=== PATIENT | male | born 1990 | race African-American/Black ===

== ENCOUNTER 2024-10-24 08:59 | Outpatient (AMB) | payer OTHER, SELFPAY ==
--- NOTE | 2024-10-24 09:03 | MHC.PC.OV ---
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 Prior PCP? - Unknown practice in [place], [place] Last office visit/CPE/labs - About 1.5 years ago Acute issue(s) - Poor sleep. Wakes up every 3 hours. Sleeps and average of 5-6 hours - Anxiousness: loss of focus, nervous, difficulty, and difficultly with communication about 4-5 times a week since he was deployed in [facility] in 08/2022. 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 Denies lack of pleasure or interest in doing things he enjoys. No hopelessness or helplessness. No SI/HI Past Medical History - Anxiety, Depression (not officially diagnosed); never been on medication; no h/o psychotherapy - Fainted and fall on the bathroom fall while walking to the bathroom 2-3 months ago. He was unconscious. His girlfriend found him on the floor. He was able to get up after 1-2 minutes. EMS was not contacted. He has not had another fainting episode Surgical History - None Family History - Dad: Asthma - Mom: Alcohol abuse, hypertension, hypercholesterolemia, substance abuse, mental illness Social History - Nonsmoker. History of vaiping; quit 6 months ago. Drinks 1-2 beers or wine twice weekly. Denies recreational drug use - Has been making healthy dietary choices. Exercises routinely (run and lift weights). 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 Gets annual eye exam and physical at the [facility] - Last dental visit was over a year ago; encouraged to schedule an appointment with his dentist for routine dental care. - Last tetanus vaccine was in 2021 - Up-to-date on the influenza vaccination [facility] Medical History (Updated 10/24/24 @ 09:56 by Shu Lora CNP) Depression Anxiety Family History (Updated 10/24/24 @ 09:17 by Alessia Byrd) Mother Alcohol abuse Substance abuse Mental illness in member of household High blood pressure High cholesterol Father Asthma Social History Housing: Apartment Patient Tobacco Use Status: Never used Tobacco e-Cigarette/Vaping Use: Former Use (he quit 6 months ago) Second Hand Smoke Exposure: No service: Yes Current occupational status: unemployed Current occupation: [employer] Current occupational exposures/hazards: No Cognitive needs: No Hearing needs: No Vision needs: No Questionnaire PHQ-9 Over the last 2 weeks, how often have you been bothered by any of the following problems? 1. Little interest or pleasure in doing things: several days 2. Feeling down, depressed, or hopeless: several days 3. Trouble falling or staying asleep, or sleeping too much: more than half the days 4. Feeling tired or having little energy: more than half the days 5. Poor appetite or overeating: several days 6. Feeling bad about yourself - or that you are a failure or have let yourself or your family down: not at all 7. Trouble concentrating on things, such as reading the newspaper or watching television: nearly every day 8. Moving or speaking so slowly that other people could have noticed. Or the opposite - being so fidgety or restless that you have been moving around a lot more than usual: not at all 9. Thoughts that you would be better off or of hurting yourself in some way: not at all Total score: 10 Depression Screening Interpretation: Positive Depression Screening Done: Yes 18315 - PHQ-9 Billing: Yes Source: Developed by Drs. Malcom Benton, Aurora Wilson, Loc Whitfield and colleagues, with an educational alfredo from [employer]. Thrive Questionnaire Date Thrive assessed: 10/24/24 I am a: Patient What is your living situation today?: I have a steady place to live Within the past 12 months, did the food you bought not last and you didn't have the money to get more?: Never true Within the past 12 months, did you worry whether your food would run out before you got money to buy more?: Never true Do you have trouble paying for medicines?: No Do you have trouble getting transportation to medical appointments?: No Do you have trouble paying your heating and electricity bill?: No Do you have trouble taking care of your child, family member or friend?: No Do you have trouble with day-to-day activities such as bathing, preparing meals, shopping, managing finances, etc.?: Yes Are you currently unemployed and looking for a job?: No Are you interested in more education?: No Please select the resources that you would like help with: None Currently or been in a relationship where the following occur: No concerns reported THRIVE Score: 0 AUDIT C Alcohol Use Questionnaire (AUDIT-C) 1. How often do you have a drink containing alcohol?: 2-3 times a week 2. How many drinks containing alcohol do you have on a typical day when you are drinking?: 1 or 2 3. How often do you have six or more drinks on one occasion?: Never Total Score: 3 Score Reviewed/Action Taken: Yes MARQUIS-7 AMB Questionnaire MARQUIS-7 Date MARQUIS - 7 assessed: 11/07/24 Feeling nervous, anxious, or on edge: 2 = More than half the days Not being able to stop or control worryin = Several days Worrying too much about different things: 2 = More than half the days Trouble relaxin = More than half the days Being so restless that it is hard to sit still: 2 = More than half the days Becoming easily annoyed or irritable: 2 = More than half the days Feeling afraid as if something awful might happen: 0 = Not at all Total MARQUIS-7 score (0-4 normal; 5-9 mild; 10-14 moderate; 15-21 severe): 11 Source: Developed by Drs. Malcom Benton, Aurora Wilson, Loc Whitfield and colleagues, with an educational alfredo from [employer]. MARQUIS-7 Assessment Billing MARQUIS-7 Assessment Tool: MARQUIS-7 Assessment 91017 Review of Systems Const Details: Denies chills, Denies fatigue, Denies fever(s), Denies headache(s) and Denies weakness HEENT Denies change in vision, Denies dizziness, Denies headache(s), Denies hearing loss, Denies nasal congestion, Denies sinus pain, Denies sinus pressure and Denies sore throat Card Denies chest pain, Denies lightheadedness, Denies dyspnea and Denies other (palpitations) Resp Denies cough, Denies dyspnea and Denies wheezing GI Denies abdominal pain, Denies melena, Denies hematochezia, Denies change in bowel habits, Denies dyspepsia and Denies nausea Denies hematuria and Denies dysuria Musc Denies abnormal gait, Denies myalgias, Denies arthralgias, Denies numbness and Denies tingling Skin/Breast Denies rash, Denies unusual bruising and Denies wounds Neuro Denies abnormal gait, Denies dizziness, Denies headache(s), Denies memory loss, Denies numbness, Denies Sensory deficit (Neuro), Denies tingling and Denies weakness Psych Denies anxiety, Denies depression and Denies memory loss Endo Denies cold intolerance, Denies fatigue, Denies heat intolerance, Denies polydipsia and Denies polyuria Ortega/Lymph Denies easy bleeding and Denies easy bruising Aller/Immun Denies wheezing Physical exam (Primary Care) Vital Signs: Last Vital Signs Temp 98.2 F 10/24/24 09:10 Pulse 75 10/24/24 09:10 Resp 16 10/24/24 09:10 BP 126/76 10/24/24 09:10 Pulse Ox 97 10/24/24 09:10 Oxygen Delivery Method Room Air 10/24/24 09:10 BMI result Body Mass Index 35.2 Tobacco/Smoking Status: Tobacco use Status Tobacco use date assessed 10/24/24 10/24/24 09:08 Patient Tobacco Use Status Never used Tobacco 10/24/24 09:08 e-Cigarette/Vaping Use Former Use (he quit 6 months 10/24/24 09:08 ago) PHQ-9: PHQ-9 Score PHQ-9: Total score 10 12/18/24 09:21 Depression Screening Interpretation: Positive Thrive Assessment: Date of Thrive Assessment Date Thrive assessed 10/24/24 10/24/24 09:21 Currently or been in a relationship where the following occur: No concerns reported Const Other: General: no acute distress, well developed, alert and awake Nutritional Appearance: well nourished Orientation/consciousness: patient oriented x3 [facility] Head: Yes normocephalic and Yes atraumatic Ears: hearing grossly normal bilaterally and TM's normal bilaterally General nose exam: Normal external nose present and Normal nares present Mouth: Normal oral and palatal mucosa present and moist mucous membranes Teeth and gingiva: dentition normal Throat: Yes oropharynx normal Eyes Pupils: Equal, round and reactive pupils present and Pupil accommodation reflex normal EOM: EOMs intact bilaterally Neck Neck: Yes normal visual inspection, Yes no lymphadenopathy and Yes trachea midline Thyroid: Thyroid normal Carotids: no bruits Lymphatic: no lymphadenopathy noted Chest Chest palpation & inspection: normal inspection of the chest Resp Effort & Inspection: normal respiratory effort Auscultation: clear to auscultation bilaterally Cardio Rate: regular rate Rhythm: regular rhythm Heart sounds: S1 normal heart sound present, S2 normal heart sound present, no gallops, no murmurs and no rubs Bruits: no abdominal aortic bruits and no carotid bruits GI Palpation (GI): No Abdominal aortic bruit present, Soft to palpation, nontender, No hepatosplenomegaly present and No Rebound tenderness present Auscultation: normal bowel sounds General: Yes no CVA tenderness Back/Spine/Pelvis Back: no CVA tenderness Cervical Spine: cervical ROM normal and No Cervical spine tenderness Thoracic/Lumbar Spine: thoraco-lumbar ROM normal, No pain with thoraco-lumbar ROM, No thoracic spinal tenderness and No lumbar spinal tenderness Skin General: warm and dry. Normal skin color. Normal skin turgor Lesions: no lesions Rashes: no rashes Trauma: no lacerations or abrasions Wounds: no wounds Nails: normal Neuro General: patient oriented x3, gait normal and CN's II-XI intact bilaterally Cranial nerves: Yes Equal, round and reactive pupils present Cognition (Neuro): normal cognition Gait exam (Neuro): Normal gait present Motor exam (neuro): 5/5 motor strength present throughout Sensory Exam: No Sensory deficit (Neuro) Deep tendon reflexes (DTR's): Right patellar reflex intensity grade: 2+ and Left patellar reflex intensity grade: 2+ Extrem General: Yes normal to inspection, No edema and No calf tenderness Psych Appearance: grossly normal Affect: normal affect Attitude: cooperative Thought process: Normal thought process present Coding Level of Care Code New Pt Level 4 (87658) New Pt Prev Care 18-39yr(74808 Diagnoses Normal physical examination, routine Z00.00 Anxiety F41.9 Sleep disturbance G47.9 Snoring R06.83 Obesity (BMI 30-39.9) E66.9 Laboratory tests ordered as part of a complete physical exam (CPE) Z00.00 Additional Codes MARQUIS-7 Assessment Billing - MARQUIS-7 Assessment Tool: MARQUIS-7 Assessment 31939 ([id number]) PHQ-9 - 57334 - PHQ-9 Billing: Yes ([id number]) Assessment & Plan Assessment & Plan (1) Normal physical examination, routine: Code(s): Z00.00 - Encounter for general adult medical examination without abnormal findings Category: Medical Plan: No significant physical restrictions or limitations noted. Advised to get lab work done a few days before his next visit. Follow-up in 2-3 weeks for telehealth visit for labs review or sooner with symptoms or concerns. Verbalized understanding and agreed with the plan. (2) Anxiety: Code(s): F41.9 - Anxiety disorder, unspecified Category: Medical Plan: Exhibiting anxiety symptoms 4-5 times weekly for the past 2 years. His symptoms may be attributed to work-related stressors. No history of psychotropic medications or psychotherapy. Will trial hydroxyzine 25 mg twice daily as needed for anxiety. He is interested in psychotherapy; message sent to the community health navigator to refer the patient to a therapist. Routine exercise encouraged. Follow-up in 2-3 weeks for anxiety and labs review or sooner with symptoms or concerns. Verbalized understanding and agreed with the plan. (3) Sleep disturbance: Code(s): G47.9 - Sleep disorder, unspecified Category: Medical Plan: Hydroxyzine at night may improve sleep. Routine exercise encouraged. Instructed on sleep hygiene. Referred to sleep medicine for sleep studies. Follow-up with worsening or new symptoms. Verbalized understanding and agreed with the plan. (4) Snoring: Code(s): R06.83 - Snoring Category: Medical Plan: Plan as above. (5) Obesity (BMI 30-39.9): Code(s): E66.9 - Obesity, unspecified Category: Medical Plan: He currently weighs 274 lb, BMI is 35.2. Declines referral to a dietitian and notes that he will continue to make healthy lifestyle choices. Healthy diet and routine exercise encouraged. Follow-up as needed. Verbalized understanding and agreed with the plan. (6) Laboratory tests ordered as part of a complete physical exam (CPE): Code(s): Z00.00 - Encounter for general adult medical examination without abnormal findings Category: Medical Plan: Fasting labs ordered as part of a complete physical exam. Advised to fast for at least 10 hours before getting labs drawn. May drink water Verbalized understanding and agreed with treatment plan. Orders: Orders Lipid Panel Today Z00.00 - Encounter for general adult medical examination without abnormal findings UA CC w/rflx Micro + Cult Today Z00.00 - Encounter for general adult medical examination without abnormal findings Complete Blood Count Auto Diff Today Z00.00 - Encounter for general adult medical examination without abnormal findings Comprehensive [place]. Panel Fast Today Z00.00 - Encounter for general adult medical examination without abnormal findings TSH reflex Free T4 Today Z00.00 - Encounter for general adult medical examination without abnormal findings Referrals Sleep Medicine Referral G47.9 - Sleep disorder, unspecified, R06.83 - Snoring Medications: New hydroxyzine HCl 25 mg PO BID 30 days PRN 60 tabs 2RF anxiety
[2024-10-24 09:10] VITALS: BP 126/76; PULSE 75; RESP 16; TEMP 36.8; O2SAT 97; BMI 35.2
== END 2024-10-24 09:56 | disposition home or self-care (01) ==
LOC: HO.HMCFM 08:59
PROVIDERS: Visit Provider Nurse Practitioner Family
DX: Z00.00 Encounter for general adult medical examination without abnormal findings (principal); F41.9 Anxiety disorder, unspecified; E66.9 Obesity, unspecified; Z68.35 Body mass index [BMI] 35.0-35.9, adult; G47.9 Sleep disorder, unspecified; R06.83 Snoring

== ENCOUNTER → 2024-10-24 08:59 | Outpatient (BNVA) | payer OTHER, SELFPAY | PROVIDERS: Visit Provider Nurse Practitioner Family | DX: Z00.00 Encounter for general adult medical examination without abnormal findings (principal); R55 Syncope and collapse; F41.9 Anxiety disorder, unspecified; G47.9 Sleep disorder, unspecified; R06.83 Snoring; E66.9 Obesity, unspecified; Z68.35 Body mass index [BMI] 35.0-35.9, adult; Z71.3 Dietary counseling and surveillance | CPT/HCPCS: 96127; 99202 ==

== ENCOUNTER 2024-11-10 12:04 | Outpatient (REF) | payer OTHER, SELFPAY ==
--- OUTSIDE RECORDS SUMMARY | 2024-11-10 12:06 | XMS_ITS | Continuity of Care Document ---
Author Name [facility] Organization [facility] Care Team Providers Care Children'S Attendant Name Role Phone [facility] Unavailable Unavailable Problems Combined list of problems from Department of Defense and Veterans Affairs facilities. It does not include entries that were removed or entered in error. 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 It does not include entries that were removed or entered in error. Substance Category Reaction Severity Reaction type Status Date Reported Comments Source No Known Allergies Drug allergy (disorder) active 10/24/2015 [facility] [place] [address] Immunizations Combined list of available immunizations from the Department of Defense and Veterans Affairs facilities. Immunization Series Date Given Administered By Site Reaction Lot Number CVX Code Drug Kennel Operator Status Comments Source influenza, injectable, quadrivalent- pf 2021 [id number] ma complet ed influenza , injectabl e, quadrival ent-pf 08/30/22 Given Ambulat ory Pharmac y typhoid Vi capsular polysaccharid e vac 2021 [id number] 101 sanofi pasteur complet ed typhoid Vi capsular polysacch aride vac 07/18/22 Given Ambulat ory Pharmac y yellow fever vaccine 2021 [id number] 37 sanofi pasteur complet ed yellow fever vaccine 07/18/22 Given Ambulat ory Pharmac y meningococcal A,C,Y,W-135 (MCV4P) 2021 [id number] 114 sanofi pasteur complet ed meningoco ccal A,C,Y,W-1 35 (MCV4P) 07/18/22 Given Ambulat ory Pharmac y influenza, injectable, quadrivalent 2020 [id number] 158 [id number] ma complet ed influenza , injectabl e, quadrival ent 08/22/21 Given Ambulat ory Pharmac y influenza, injectable, quadrivalent, contains preservative 0 2020 [id number] 158 [facility] (SKB) complet ed influenza , injectabl e, quadrival ent, contains preservat alexey DoD COVID Vaccine Moderna 2020 [id number] complet ed COVID Vaccine Moderna 02/20/21 Given Ambulat ory Pharmac y SARS-COV-2 (COVID-19) vaccine, mRNA, spike protein, LNP, preservative free, 100 mcg or 50 mcg dose 2 2020 [id number] 207 Moderna US, Inc. (MOD) complet ed SARS-COV- 2 (COVID-19 ) vaccine, mRNA, spike protein, LNP, preservat alexey free, 100 mcg or 50 mcg dose DoD COVID Vaccine Moderna 2020 [id number] complet ed COVID Vaccine Moderna 01/23/21 Given Ambulat ory Pharmac y SARS-COV-2 (COVID-19) vaccine, mRNA, spike protein, LNP, preservative free, 100 mcg or 50 mcg dose 1 2020 [id number] 207 Moderna US, Inc. (MOD) complet ed SARS-COV- 2 (COVID-19 ) vaccine, mRNA, spike protein, LNP, preservat alexey free, 100 mcg or 50 mcg dose DoD influenza, injectable, quadrivalent, preservative free 2019 BARRY, () Not Given influenza , injectabl e, quadrival ent, preservat alexey free DoD influenza, injectable, quadrivalent- pf 2018 [id number] 150 Seqirus complet ed influenza , injectabl e, quadrival ent-pf 09/08/19 Given Ambulat ory Pharmac y Influenza, injectable, quadrivalent, preservative free 0 2018 [id number] 150 Seqirus (SEQ) complet ed Influenza , injectabl e, quadrival ent, preservat alexey free DoD anthrax vaccine 2018 [id number] 24 Emergent Biosolutions complet ed anthrax vaccine 12/01/18 Given Ambulat ory Pharmac y anthrax vaccine 3 2018 [id number] 24 Emergent [employer] Amy (MIP) complet ed anthrax vaccine DoD influenza, injectable, quadrivalent 2017 [id number] 158 GlaxoSmithKli ne complet ed influenza , injectabl e, quadrival ent 09/25/18 Given Ambulat ory Pharmac y influenza, injectable, quadrivalent, contains preservative 0 2017 [id number] 158 SmithKline (SKB) complet ed influenza , injectabl e, quadrival ent, contains preservat alexey DoD anthrax vaccine 2017 [id number] 24 Emergent [employer]olutions complet ed anthrax vaccine 06/21/18 Given Ambulat ory Pharmac y anthrax vaccine 2 2017 [id number] 24 [employer] [place] (MIP) complet ed anthrax vaccine DoD anthrax vaccine 2017 [id number] 24 Emergent [employer] complet ed anthrax vaccine 04/15/18 Given Ambulat ory Pharmac y typhoid Vi capsular polysaccharid e vac 2017 [id number] 101 sanofi pasteur complet ed typhoid Vi capsular polysacch aride vac 04/15/18 Given Ambulat ory Pharmac y anthrax vaccine 1 2017 [id number] 24 [employer] Amy (MIP) complet ed anthrax vaccine DoD typhoid Vi capsular polysaccharid e vaccine 1 2017 [id number] 101 Sanofi Pasteur (PMC) complet ed typhoid Vi capsular polysacch aride vaccine DoD Influenza, inj, MDCK, quadrivalent- pf 2016 [id number] 171 Seqirus complet ed Influenza , inj, MDCK, quadrival ent-pf 09/10/17 Given Ambulat ory Pharmac y Influenza, injectable, Madin Ruby Canine Kidney, preservative free, quadrivalent 3 [id number] 171 Seqirus (SEQ) comple t ed Influenza , injectabl e, Madin Ruby Canine Kidney, preservat alexey free, quadrival ent DoD hepatitis A adult vaccine 2015 [id number] 52 GlaxoSmithKli ne complet ed hepatitis A adult vaccine 10/09/16 Given Ambulat ory Pharmac y hepatitis A vaccine, adult dosage 2 2015 [id number] 52 [facility] ([facility]) complet ed hepatitis A vaccine, adult dosage DoD influenza, seasonal, injectable-pf 2015 [id number] 140 Seqirus complet ed influenza , seasonal, injectabl e-pf 09/11/16 Given Ambulat ory Pharmac y Influenza, seasonal, injectable, preservative free 2 2015 [id number] 140 Seqirus (SEQ) comple t ed Influenza , seasonal, injectabl e, preservat alexey free DoD hepatitis A adult vaccine 2014 [id number] 52 GlaxoSmithKli ne complet ed hepatitis A adult vaccine 10/22/15 Given Ambulat ory Pharmac y hepatitis A vaccine, adult dosage 1 2014 [id number] [facility] complet ed hepatitis A vaccine, adult dosage DoD tetanus, diphtheria, acellular pertu is 2014 [id number] 115 GlaxoSmithKli ne complet ed tetanus, diphtheri a, acellular pertussis 10/17/15 Given Ambulat ory Pharmac y poliovirus vaccine, inactivated 2014 [id number] 10 sanofi pasteur complet ed polioviru s vaccine, inactivat ed 10/17/15 Given Ambulat ory Pharmac y meningococcal A,C,Y,W-135 (MCV4P) 2014 [id number] 114 sanofi pasteur complet ed meningoco ccal A,C,Y,W-1 35 (MCV4P) 10/17/15 Given Ambulat ory Pharmac y tuberculin purified protein derivative 2014 [id number] 96 sanofi pasteur complet ed tuberculi n purified protein derivativ e 10/17/15 Given Ambulat ory Pharmac y adenovirus vaccine, live 2014 [id number] 143 Teva Pharmaceutica ls complet ed adenoviru s vaccine, live 10/17/15 Given Ambulat ory Pharmac y influenza, seasonal, injectable-pf 2014 [id number] 140 CSL Behring complet ed influenza , seasonal, injectabl e-pf 10/17/15 Given Ambulat ory Pharmac y poliovirus vaccine, inactivated 1 2014 [id number] 10 Sanofi Pasteur ([facility]) complet ed polioviru s vaccine, inactivat ed DoD meningococcal polysaccharid e (groups A, C, Y and W-135) diphtheria toxoid conjugate vaccine (MCV4P) 1 2014 [id number] 114 Sanofi Pasteur ([facility]) complet ed meningoco ccal polysacch aride (groups A, C, Y and W-135) diphtheri a toxoid conjugate vaccine (MCV4P) DoD tetanus toxoid, reduced diphtheria toxoid, and acellular pertu is vaccine, adsorbed 1 2014 [id number] 115 hetras (SKB) complet ed tetanus toxoid, reduced diphtheri a toxoid, and acellular pertussis vaccine, adsorbed DoD Influenza, seasonal, injectable, preservative free 1 2014 [id number] 140 CSL Biotherapies, Inc. (CSL) complet ed Influenza , seasonal, injectabl e, preservat alexey free DoD Adenovirus, type 4 and type 7, live, oral 1 2014 [id number] 143 [facility] (BRR) complet ed Adenoviru s, type 4 and type 7, live, oral DoD measles virus vaccine 0 2014 05 () Not Given measles virus vaccine DoD rubella virus vaccine 0 2014 06 () Not Given rubella virus vaccine DoD mumps virus vaccine 0 2014 07 () Not Given mumps virus vaccine DoD varicella virus vaccine 0 2014 21 () Not Given varicella virus vaccine DoD hepatitis B vaccine, unspecified formulation 0 2014 45 () Not Given hepatitis B vaccine, unspecifi ed formulati on DoD Results Combined list of recent chemistry, hematology and other laboratory results from Department of Defense and Veterans Affairs, ranging from 15 months to all on record, depending upon the facility. Order Name Results Value Reference Range Date Interpretation Specimen Comments Source Infectio us Disease HIV-1/O/2. EPI NON-REAC TIVE 02/23 Result Comment: INTERPRETAT ION(S): This method is a screening procedure for the detection of HIV p24 Antigen and Antibodies to HIV-1, including Group O, and/or HIV-2. NON-REACTIV E: HIV-1 antigen and HIV-1 / HIV-2 antibodies were not detected. No laboratory evidence of HIV infection. A negative test result does not exclude the possibility of exposure to or infection with HIV. HIV antibodies and/or p24 antigen may be undetectabl e in some stages of the infection and in some clinical conditions. If acute HIV infection is suspected, consider submitting another specimen to a reference laboratory for HIV-1 RNA. SCREEN REACTIVE - CONFIRMATIO N TO FOLLOW: Possible presence of HIV-1 antibodies, HIV-2 antibodies and/or HIV-1 p24 antigen. Specimen will reflex to the confirmatio n testing that fulfills the Center for Disease Control and Prevention' s HIV diagnostic algorithm. Refer to [facility] Lab Guide for additional information : [email or web address]/ [email or web address] [email or web address] x Testing performed by [employer] jerel kidd. Performed by: Epidemiolog y Laboratory Service [facility] [address] [place] [phone] Amb[facility] y Pharmacy [employer] luzma Sendouts Repository Sample.EPI RECEIVED 02/23 Result Comment: INTERPRETAT ION(S): Performed by: Epidemiolog y Laboratory Service [facility] [facility] [address] [place] [phone] Amb[facility] y Pharmacy Vital Signs Combined list of inpatient and outpatient Vital Signs from Department of Defense and Veterans Affairs, ranging from 12 months to all on record, depending upon the facility. Vital Sign Value Date Comments Source No data available for this section Ambulatory Pharmacy Encounters Combined list of: 1) Encounters from Department of Veterans Affairs facilities going back up to thelast 18 months. 2) Encounters from the Department of Defense facilities going back up to 280 months. Location Location Details Encounter Type Encounter Number Reason For Visit Attending Provider ADM Date DC Date Status Disposition Source [facility] [place] [place] [address](Hea ring Conservat ion, BMT) OUTPATIENT [id number] JAQUELIN PRINCE 10/21 Released w/o Limitations [facility] [place] [address](H earing Conserv ation, BMT) [facility] [place] [address]([facility]) OUTPATIENT [id number] Notes Entered by: Venkata VALERIO 23 Oct 2015 0954 ------- ------- ------- ------- -- strep prophyl axis SCHAFFERMIAH PICKERING Venkata 10/23 Released w/o Limitations [facility] [place] [address]([facility] teofilo) [facility] [place] [address](MEI Rzaa) OUTPATIENT [id number] Notes Entered by: CHIDI BENNETT 04 Nov 2015 1518 ------- ------- ------- ------- -- cold pack FANG BENNETT 11/04 Released w/o Limitations [facility] [place] [address](Christine Raza) [facility], [place] [address]([facility], [facility]) OUTPATIENT [id number] [facility] NUTRITI ON MARCIA FABIAN Christine 12/17 Released w/o Limitations [facility] [place] [address](Pablo mckeon Medicin e, [facility]) [facility], [place] [address]([facility]) OUTPATIENT [id number] request IRINA Cardoso 12/18 Released with Work/Duty Limitations [place] [address]([facility] teofilo) Theater Facility OUTPATIENT [id number] Theater Provider 08/28 Released with Work/Duty Limitations [facility] OUTPATIENT [id number] Theater Provider 12/01 Released w/o Limitations [facility] OUTPATIENT [id number] 7 Theater Provider 12/06 Released w/o Limitations [facility] OUTPATIENT [id number] Theater Provider 12/30 Released w/o Limitations [facility] OUTPATIENT [id number] 2 Theater Provider 01/18 Released w/o Limitations [facility] OUTPATIENT [id number] 1 Theater Provider 02/26 Released w/o Limitations [facility] OUTPATIENT [id number] Theater Provider 02/26 Released w/o Limitations [facility] OUTPATIENT [id number] 7 Theater Provider 02/26 Released w/o Limitations [facility] OUTPATIENT [id number] Theater Provider 02/28 Released w/o Limitations [facility] OUTPATIENT [id number] Theater Provider 03/01 Released w/o Limitations Theater Facilit y [facility] Medicine [facility]) TELE CONSULT [id number] Notes Entered by: ANGELIA CUEVAS 04 Aug 2022 141 ------- ------- ------- ------- -- 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 BUZZ Mathis 08/04 [facility]( light Medicin e [facility]) [facility] TELE CONSULT [id number] Notes Entered by: AVI ALMONTE 12 Aug 2022 1604 ------- ------- ------- ------- -- COVID-1 9 FILIBERTO Martinez 08/12 [facility]) Theater Facility OUTPATIENT [id number] Theater Provider 10/01 Released w/o Limitations [facility] OUTPATIENT [id number] 7 Theater Provider 02/08 Released w/o Limitations Theater Facilit [facility] [id number]-439 [facility] Outpatient [id number] CARLIN ARRIAGA 12/08 Discharge Disposition: Home or Self Care 8344R-4 39 [facility] 8344R-439 [facility] Dental [id number] FRITZ HARRELL 01/12 Discharge Disposition: Home or Self Care 8344R-4 39 AMDS 8344R-439 AMDS Between Visit [id number] 09/24 Discharge Disposition: Home or Self Care 8344R-4 39 AMDS Procedures Combined list of: 1) Procedures from Department of Veterans Affairs facilities going back up to thelast 18 months, not all VA non-surgical procedures are included; 2) All procedures from the Department of Defense facilities. Procedure Procedure Type Code Date Perfomer Comments Sour e No data available for this section Ambulatory Pharmacy Psychiatric Diagnostic Evaluation Review of Records and Reports Psychiatric Diagnostic Evaluation Review of Records and Reports [id number] GAMA MORAN [facility] Psychometric Neuropsych Testing Battery Admin By Computer Psychometric Neuropsych Testing Battery Admin By Computer [id number] GAMA MORAN [facility] Medical Nutrition Therapy Group (2 or More Individuals) Each 30 Minutes Medical Nutrition Therapy Group (2 or More Individuals) Each 30 Minutes [id number] MARCIA SMYTH [facility] Physician Supervised Injection Intramuscular Antibiotic Physician Supervised Injection Intramuscular Antibiotic [id number] BARBIE MAGANA [facility] Threshold Audiogram (Pure Tone) Automated Threshold Audiogram (Pure Tone) Automated 0208T JAQUELIN PRINCE [facility] MEDICAL NUTRITION THERAPY; GROUP (2 OR MORE INDIVIDUAL(S)), EACH 30 MINUTES 016 [facility] THERAPEUTIC, PROPHYLACTIC, OR DIAGNOSTIC INJECTION (SPECIFY SUBSTANCE OR DRUG); SUBCUTANEOUS OR INTRAMUSCULAR [facility] PURE TONE AUDIOMETRY (THRESHOLD), AUTOMATED; AIR ONLY [facility] NEUROPSYCHOLOGICAL TESTING (EG, [place] CARD SORTING TEST), ADMINISTERED BY A COMPUTER, WITH QUALIFIED HEALTH CHEMICAL TANK WORKER INTERPRETATION AND REPORT [facility] Social History Combined list of available smoking, tobacco, and other social history from Department of Defense and Veterans Affairs facilities. Social History Type Response Date Comment Sour e Male 09/27/2022 Ambulatory Pha rmacy Sexual Orientation Ambula tory Pharmacy Gender identity Ambulator y Pharmacy This section is an empty soc ial history section. DoD Assessment and Plan Combined list of future care activities from Department of Defense and Veterans Affairs facilities (e.g., assessment and plan notes, appointments, orders, and referrals). Additional future care activities may be listed in the Plan of Care section. Result Assessment and Plan Date Source Assessment and Plan Extracted from:Title : AUoF PHA / MHA Author: CATIA LEAHY Date: 12/09/23 Mbr came in for appt Addendum by SEBAS MCCORMACK on December 09, 2023 09:45 EST optometry: DVA 20/20 uncorrected NVA 20/20 uncorrected color vision: normal confrontational gregorio: normal BP: 135/80 HR: 73 Heght: 74'' weight: 260lbs No Meds No allergies No recent surgery/hospitalization Addendum by CARLIN SPENCER MD on December 09, 2023 09:54 EST Chief Complaint: Member here for annual PHA.?No acute complaints.?IMR?green. HEENT:?Normal Joints:?Normal Lungs:?Normal Heart:?Normal Comments: ANNUAL PERIODIC HEALTH ASSESSMENT I. BEDSPREAD SEAMER INFORMATION AND DEMOGRAPHICS (SMI) 1. Last Name: GISSELLE 2. First Name: MICHAEL 3. Middle Name: PERFECTO 4. Assessment Date: 5. : 6. Age: 33 7. Gender: M 8. DoD ID Number: [id number] 9. Service Branch: [employer] 10. 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 Unit Name: [id number] 14. Duty Station/Location: [place] 15. C: [id number] 16. Is this your first Periodic Health Assessment (PHA)?: N 17. Are you enrolled in a secure messaging system with your health care provider?: N 18. Current contact information: Preferred Method: Day Time Phone DSN: [id number] Day Time Phone: [phone] Night Time Phone: [phone] Email 1: [email or web address] Email 2: Address: [address] City: [place]: [place] Zip Code: [address] 19. Point of contact who can always reach you: Name: Ebonie Laird Phone 1: [phone] Phone 2: EMAIL: Address: [address] City: [place]: [place] Zip Code: [address] II. DEPLOYMENT INFORMATION (DEP) 1. [ 2 ] Total number of deployments in the PAST 5 YEARS 2. [ [place] ] Primary country of last deployment 3. [ ] Date departed theater 4. [ N ] Are you going to deploy within the NEXT 120 DAYS? III. OCCUPATIONAL INFORMATION (OCC) 1 [ [id number] ] What is your occupational code 2. [ Authorize Personal ] Describe your typical duty 3. [ No ] Does your specialty require an operational duty physical exam? 4. [ No ] Are you currently enrolled in a medical surveillance/occupational health program?: No IV. MEDICAL CONDITIONS (JAMES): 1. Since your last PHA, have you experienced any of the following health conditions, and if so, what is your status? [ ] Conditions with no medical care [ ] Conditions with medical care, but no longer under treatment [ ] Conditions with medical care, and NOW under treatment 2. Since your last PHA, have you experienced any of the following health conditions, and if so, what is your status? [ ] Conditions with no medical care [ ] Conditions with medical care, but no longer under treatment [ ] Conditions with medical care, and NOW under treatment 3. For any condition marked YES in question 1 or 2, are you currently on any profile or limited duty for that condition? [ ] Conditions 4. [ Yes ] Have you been based or stationed at a location where an open burn pit was used? 5. [ Not Sure ] Have you been exposed to toxic airborne chemicals or other airborne contaminants? 6. [ No ] Are you enrolled in the Airborne Hazards and Open Burn Pit Registry? 7. [ N ] Federal law requires eligible members to enroll in the Airborne Hazards and Open Burn Pit Registry or opt-out. If eligble, choose one: 8. Have you had any surgery since your last PHA?: No 10.a. [ No ] Since your last PHA, has a health care provider recommended surgery(s) that you have not had? 11.a. [ No ] Do you currently require hearing aids, special medical supplies, CPAP, adaptive equipment, assistive technology devices, and/or other special accommodations? 12.a. [ No ] Do you have a waiver or profile for any part of your Service's physical fitness test? 13.a. [ No ] Do you have any problems wearing a gas mask, ballistic helmet, body armor, and/or chemical/biological protective garments? 14.a. [ No ] Have you ever been told by a health care provider that you SHOULD NOT receive an immunization for medical reasons? 15.a. [ No ] Do you have a permanent profile or an Assignment Limitation Code C? 16.a. [ No ] Are you on a temporary profile or limited duty? 17. [ 0 ] During the PAST 2 years, how many times have you been placed on a temporary profile or on limited duty? V. INDIVIDUAL MEDICAL READINESS (IMR) 1. [ No ] Do you have any allergies? 3. [ Not required ] Do you have red medical warning dog tags? 4. [ No ] Do you wear corrective lenses? . BEHAVIORAL HEALTH (MHA) 1. a. [ None ] Over the PAST MONTH, what major life stressors have you experienced that are a cause of significant concern or make it difficult for you to do your work, take care of things at home, or get along with other people (for example, serious conflicts with others, relationship problems, or a legal, disciplinary or financial problem)? 2. a. [ No ] In the PAST YEAR did you receive care for any mental health condition or concern such as, but not limited to post traumatic stress disorder (PTSD), depression, anxiety disorder, alcohol abuse or substance abuse? 3. [ None ] What prescription or over-the counter medications (including herbals/supplements) for sleep, pain, combat stress, or a mental health problem are you CURRENTLY taking? 4. a. [ No ] In the past 12 months, have you gambled? 5. a. [ Never ] How often do you have a drink containing alcohol? 6. Have you ever had any experience that was so frightening, horrible, or upsetting that in the PAST MONTH, you: 6. a. [ No ] Have had nightmares about it or thought about it when you did not want to? 6. b. [ No ] Tried hard not to think about it or went out of your way to avoid situations that remind you of it? 6. c. [ No ] Were constantly on guard, watchful or easily startled? 6. d. [ No ] [place] numb or detached from others, activities, or your surroundings? 6. e. [ Not answered ] [place] guilt or unable to stop blaming yourself or others for the event(s) or any problems the event(s) may have caused? 7. Over the LAST 2 WEEKS, how often have you been bothered by the following problems? 7. a. [ Not at all ] Little interest or pleasure in doing things 7. b. [ Not at all ] Feeling down, depressed, or hopeless 8. [ No ] Would you like to schedule an appointment with a health care provider to discuss any health concern(s)? 9. [ No ] Are you interested in receiving information or assistance for a stress, emotional or alcohol concern? 10. [ No ] Are you interested in receiving assistance for a family or relationship concern? 11. [ No ] Would you like to schedule a visit with a balloon artist, mental health care provider, or a community support counselor? VII. FAMILY HISTORY AND LIFESTYLE (LIF) 1. [ Very Good ] Overall, how would you rate your health during the PAST MONTH? 2. [ None/Don't Know ] Member indicates that family members have the following problems 6. [ Yes ] I participate in moderate intensity physical activites at least 2.5 hours, or a combination of moderate and vigorous aerobic activites, for at least 75 minutes per week. 7. In a typical week, I do physical activities specifically designed to STRENGTHEN my muscles: [ 5 ] Day(s) per week 8. [ None ] What prescriptions or [id number] medications are you CURRENTLY taking for health problems on a ROUTINE BASIS? 9. Which of the following products have you taken since your last PHA: Protein Supplements/Creatine: Once a week Multi-Vitamins: Once a week [place]-3 Supplements: Once a week 11. Think about the PAST 30 DAYS. How often did you eat/drink the following foods/beverages? [ 3 to 6 servings per week ] Fruits [ 3 to 6 servings per week ] Vegetables [ Rarely or Never ] Starchy Vegetables [ 3 to 6 servings per week ] Whole Grains [ Rarely or Never ] Dairy and Calcium Containing Foods [ Rarely or Never ] Fish [ 3 to 6 servings per week ] Lean Protein [ Rarely or Never ] Sugar-Sweetened Beverages ] Have you had a cholesterol check by a health hospice home care coordinator within the PAST 5 YEARS? 13.a. In the PAST 30 DAYS, which of the following products have you used on at least one day? None 15. Which of the following best describes your past tobacco use? I have never used tobacco products. 16. [ No ] Are you regularly exposed to secondhand smoke? 17. [ 5 to less than 7 hours ] During the LAST 2 WEEKS, how many hours of sleep did you get on most days? 18. [ No ] During the LAST 2 WEEKS, have you felt impaired or unable to adequately perform due to sleepiness or poor quality sleep? 19. [ No ] Have you had any unexplained weight loss or gain since your last PHA? 20. Member is not at risk for sexually transmitted infections. 22. Since your last PHA, what, if anything, have you and your partner used to keep from getting ? [ Condoms ] I am actively taking steps to prevent , including 23. [ No ] In the last year, have you or your partner had a scare, where you were not trying to get but were worried enough to use a home test? X. OTHER MEDICAL (OTH) 1. [ 0 ] Rate the amount of pain you have had, on average, over the PAST 24 HOURS 3. [ No ] Since your last PHA, have you received care or treatment for any medical and/or mental health condition(s) from a civilian or non- facility? 5. Member acknowledged responsibility for reporting health issues. 7. [ No ] Woud you like to schedule an appointment with a health care provider to discuss any health concerns? XI. SEPARATION AND CHCF 1. 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 PART B. RECORD REVIEW AND RECOMMENDATIONS I. RECORD REVIEWER INFORMATION 1. Last Name: YESSI TRUONG 2. First Name: ALEXIA 3. Middle Name: 4. Service Branch: [employer] 5. 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 EMAIL: [email or web address] 8. Facility: [address] [facility] 9. Unit: [address] [facility] [address] 10. Address: [address] [place] [address] 11. State: [place] 12. Zip Code: [address] 13. Phone: [phone] 14. Date Record Review: II. MEDICAL SCREENING 1. 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 [ 6 feet 0 inches Date: ] glass forming crew member's most recently documented height 3. [ 250 pounds Date: ] glass forming crew member's most recently documented weight 4. [ 130/76 Date: ] glass forming crew member's most recently documented blood pressure reading 5. [ No ] Does the glass forming crew member have a history of abnormal blood pressure since their last PHA? 6. [ Yes ] Does the glass forming crew member have a laboratory test of sickle cell trait documented in their permanent medical record? 7. [ No Cholesterol Test Documented ] What is the date of the glass forming crew member's most recently documented cholesterol test? 9. [ No Active Medications Documented ] List of glass forming crew member's active medications listed in their permanent medical record 10. [ No ] Is there a discrepancy between the active medication record review and the glass forming crew member's self-reported list of medications? 11. [ No Outside Care Documented ] List documented significant care the glass forming crew member has received since their last PHA from a provider OUTSIDE the Health System 12. [ No ] Is there a discrepancy between the glass forming crew member's list of OUTSIDE care (from OTH[facility]), and the OUTSIDE care found in the record? 13. [ No Inside Care Documented ] List documented significant care the glass forming crew member has received since their last PHA from a provider INSIDE the Health System 15. [ Not Answered ] Confirm that vaccine exemptions are listed in the medical record for each vaccine listed IV. FAMILY HISTORY AND LIFESTYLE 1. [ Yes ] Does the [id number] reflect the glass forming crew member's reported family history? . DEPLOYMENT-RELATED HEALTH ASSESSMENTS 1. [ Yes ] Based on your check of records, does the glass forming crew member have any due or overdue deployment health assessments which need to be completed with this PHA? VII. INDIVIDUAL MEDICAL READINESS 1. [ No ] Does the glass forming crew member have an Assignment Limitation Code C? 3. [ Classification: 2 ] Most recently documented dental exam 4. [ No: Influenza, [place] ] Is the glass forming crew member current on all required immunizations in the immunization tracking system? 6. Does the glass forming crew member have the following laboratory tests documented in their permanent medical record? [ Yes ] HIV test within the PAST 24 months [ Yes ] G6PD results on file [ Yes ] Blood type and Rh on file [ Yes ] DNA test on file IX. ADDITIONAL RECORD REVIEWER COMMENTS 1. This record review does NOT have a need for provider notification or referral.2. Additional comments about this record review that need to be forwarded to the Health Long Term Care Administrator completing PART C: RR completed. JLV did not show any significant findings. Mbr deployed to [facility] from 09/21/22-02/15/23. No profiles. Date Record Review Completed: --------- PART C. HEALTH CARE PROVIDER I. MENTAL HEALTH ASSESSMENT (MHA) PROVIDER INFORMATION 1. Last Name: Rodrigo 2. First Name: Charmaine 3. Middle Name: 4. Service Branch: Other 5. 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 EMAIL: [email or web address] 8. Facility: [facility] Admin Office 9. Unit: N/A 10. [facility] 11. State: [place] 12. Zip Code: [address] 13. 14. Date HCP Review initiated: 1. Member marked that they did not have a concern or a difficulty with a major life stressor. 2. Address concerns identified on member questions 2 and 3. History of mental health care: Not answered Member's response: Provider's comments: Medications: Not answered Member's response: Provider's comments: 3. Member's AUDIT-C screening score was 0. (nothing required) 4. Member did not stefano yes on two or more of questions 6a through 6e. 5. Member did not stefano More than half the days or nearly every day on question 7a or 7b. 6. Suicide risk evaluation. 6. a. Ask: Over the past month, have you wished you were or wished you could go to sleep and not wake up?: No 6. b. Ask: Have you actually had any thoughts of killing yourself?: No 6. f. 1. Ask: In you lifetime, have you done anything, started to do anything, or prepared to do anything to end your life?: No 6. g. Further risk assessment comments: No concerns reported by the SM. SM denied SI/HI/self-harm. 7. Member states that they have not had thoughts or concerns over the past month that they might hurt or lose control with someone. 9. Summary of Provider's identified concerns needing referrals: None 11. Comments: 13. Supplemental services recommended/information provided: No supplemental services required Date MHA Certified: III. PERIODIC HEALTH ASSESSMENT (PHA) PROVIDER INFORMATION 1. Last Name: KAREN 2. First Name: CARLIN 3. Middle Name: 4. Service Branch: [employer] 5. 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 EMAIL: [email or web address] 8. Facility: [facility] 9. Unit: [address] [facility] 10. Address: [address] [place] [address] 11. State: [place] 12. Zip Code: [address] 13. Phone: [phone] 14. Date HCP Review initiated: IV. PERIODIC HEALTH ASSESSMENT PROVIDER RECOMMENDATIONS and REFERRALS 1. Provider concerns with this assessment: No issues or concerns identified V. SUMMARY AND COMMENTS 1. Additional information summarizing findings during the glass forming crew member assessment: 2. Provider Comments: . INDIVIDUAL MEDICAL READINESS DISPOSITION DETERMINATION JAMES: Ready DEN: Not Ready IMM: Ready LAB: Ready ME: Ready IMR Status: Partially Medically Ready VII. SERVICE MEDICAL DEPLOYABILITY EVALUATION INDICATED Based on your review of all documentation, is the glass forming crew member medically deployable without limitations? Reference [employer] 6490.07 Yes (glass forming crew member DOES NOT currently have a medical condition that limits deployability) Date PHA Completed: END OF [id number] REPORT Impression:Meets?medical standards per DAFMAN 48-123/MSD. Disposition:?No AF469 changes based on this encounter.[employer] Qualified. 11/10/2024 Ambulatory Pharmacy Functional Status Combined list of recent functional and cognitive assessments recorded at Department of Defense and Veterans Affairs (VA).VA Functional [place] Measurement (FIM) Scale: 1 = Total Assistance (Subject = 0% +), 2 = Maximal Assistance (Subject = 25% +), 3 = Moderate Assistance (Subject = 50% +), 4 = Minimal Assistance (Subject = 75% +), 5 = Supervision, 6 = Modified [place] (Device), 7 = Complete [place] (Timely, Safely). Assessment Date/Time Source Assessment Type Assessment Skill Assessment Score Assessment Details No data available for this section
[2024-11-10 14:00] LABS: MANUAL DIFF FLAG NO
[2024-11-10 14:08] LABS: Appearance Urine Clear; Basophils Absolute Auto 0.1 X10*3/uL (0.0-0.2); Basophils Percent Auto 0.7 % (0-2); Color Urine Yellow; Eosinophils Absolute Auto 0.3 X10*3/uL (0.0-0.4); Eosinophils Percent Auto 3.9 % (0-4); Glucose Urine UA Negative (Negative); Hematocrit 42.8 % (42.0-52.0); Hemoglobin 13.6 g/dl (14.0-18.0); Imm Gran Abs Auto 0.02 X10*3/uL (0.00-0.03); Imm Gran Pct Auto 0.3 % (0.0-0.4); Leukocyte Esterase Urine Negative (Negative); Lymphocytes Percent Auto 28.5 % (20-40); Mean Corpuscular HGB Conc 31.8 g/dl (31.0-36.0); Mean Corpuscular Volume 88.1 fL (80.0-98.0); Mean Platelet Volume 10.3 fL (9.4-12.4); Monocytes Absolute Auto 0.6 X10*3/uL (0.1-1.2); Monocytes Percent Auto 8.9 % (2-11); Neutrophils Percent Auto 57.7 % (45-73); Nitrite Urine Negative (Negative); Platelet Count 382 X10*3/uL (160-400); Red Blood Count 4.86 X10*6/uL (4.60-5.80); Red Cell Distribution Width 13.1 % (11.0-16.0); Specific Gravity - Urine >= 1.030 (1.005-1.025); Urine Blood Negative (Negative); Urine Ketones Negative (Negative); Urine Protein Negative (Neg-Trace); White Blood Count 6.9 X10*3/uL (4.8-10.8)
[2024-11-10 14:32] LABS: Alanine Aminotransferase 33 U/L (0-40); Albumin Level 4.2 g/dL (3.5-5.0); Alkaline Phosphatase 66 U/L (39-117); Anion Gap 11 (12-20); Aspartate Amino Transferase 48 U/L (5-37); Bilirubin Total 0.4 mg/dL (0.0-1.0); Blood Urea Nitrogen 11 mg/dL (9-16); Calcium 9.3 mg/dL (8.4-10.2); Carbon Dioxide 26 mmol/L (22-29); Chloride 109 mmol/L (96-108); Cholesterol 167 mg/dL (<200); Estimated Glomerular Filt Rate > 60; Glucose Fasting 82 mg/dL (60-99); HDL Cholesterol 40 mg/dL (>40); LDL Cholesterol Calculated 113 mg/dL (<100); Sodium 142 mmol/L (135-145); Total Protein 7.1 g/dL (6.5-8.0); Triglycerides 71 mg/dL (<150)
[2024-11-10 14:46] LABS: TSH reflex Free T4 1.05 uIU/mL (0.32-4.0)
== END 2024-11-10 12:05 | disposition home or self-care (01) ==
LOC: HO.HMGCLDS 12:04
PROVIDERS: PCP Nurse Practitioner Family; Visit Provider Nurse Practitioner Family
DX: Z00.00 Encounter for general adult medical examination without abnormal findings (principal)
CPT/HCPCS: 36415; 80053; 80061; 81003; 84443; 85025

== ENCOUNTER 2024-11-12 14:09 | Outpatient (AMB) | payer OTHER, SELFPAY ==
--- NOTE | 2024-11-12 14:07 | A.OFFPC_ITS ---
Intake Visit Reasons: Telehealth 2-3 wks labs review Intake Note: patient here for telehealth lab review Marketing Finance Manager Required: No Allergies No Known Allergies Allergy (Verified 11/12/24 14:07) Tobacco use date assessed: 10/24/24 Dental Screening Dental Screen Date: 11/12/24 Did you have a dental visit in the last 12 months?: No Did you have a dental problem in the last 6 months where you did not have access to dental care?: No Was dental information given to patient?: Patient has dentist HPI HPI Comments History of Present Illness Details 34-year-old male [facility] of recent lab results. He admits to taking hydroxyzine as prescribed the adverse reactions. Anxiety symptoms have significantly improved since starting hydroxyzine. The medication makes him drowsy, therefore, he takes it at bedtime. His sleep has improved; he sleeps an average of 6-8 hours nightly. He requests testosterone level check. No acute symptoms. 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 How many drinks containing alcohol do you have on a typical day when you are drinking?: 1 or 2 3. How often do you have six or more drinks on one occasion?: Never Total Score: 0 MARQUIS-7 AMB Questionnaire MARQUIS-7 Date MARQUIS - 7 assessed: 11/07/24 Source: Developed by Drs. Malcom Benton, Aurora Wilson, Loc Whitfield and colleagues, with an educational alfredo from [employer]. Review of Systems Const Details: Const Denies chills, Denies fatigue, Denies fever(s), Denies headache(s) and Denies weakness ENT Denies dizziness and Denies headache(s) Card Denies chest pain, Denies lightheadedness, Denies dyspnea and Denies other (Palpitations) Resp Denies cough, Denies dyspnea, Denies wheezing and Denies other ( shortness of breath) GI Denies abdominal pain, Denies melena, Denies hematochezia, Denies change in bowel habits, Denies dyspepsia and Denies nausea Denies hematuria and Denies dysuria Musc Denies abnormal gait, Denies myalgias, Denies arthralgias, Denies numbness and Denies tingling Skin/Breast Denies rash, Denies unusual bruising and Denies wounds Neuro Denies abnormal gait, Denies dizziness, Denies headache(s), Denies memory loss, Denies numbness, Denies Sensory deficit (Neuro), Denies tingling and Denies weakness Psych Denies anxiety, Denies depression, Denies memory loss Endo Denies cold intolerance, Denies fatigue, Denies heat intolerance, Denies polydipsia and Denies polyuria Aller/Immun Denies wheezing Physical exam (Primary Care) Tobacco/Smoking Status: Tobacco use Status Tobacco use date assessed 10/24/24 11/12/24 14:08 Patient Tobacco Use Status Never used Tobacco 11/12/24 14:08 e-Cigarette/Vaping Use Former Use (he quit 6 months 11/12/24 14:08 ago) Thrive Assessment: Date of Thrive Assessment Date Thrive assessed 10/24/24 11/12/24 14:08 Const Other: Telehealth visit. No physical exam. Telehealth Telehealth Telehealth Platform: Telephone Location of provider rendering services: practice address Location of patient: address on file Patient Identification confirmed using: Name, : Yes Telehealth method: voice only Patient verbally consented to treatment: Yes Patient verbally consented to billing insurance company: Yes Patient informed of any privacy concerns related to visit: Yes Coding Level of Care Code Tele Est Pt Level 3 (49270) Diagnoses Dyslipidemia E78.5 Elevated AST (SGOT) R74.01 Anxiety F41.9 Time Spent (min) 10 Assessment & Plan Assessment & Plan (1) Dyslipidemia: Code(s): E78.5 - Hyperlipidemia, unspecified Category: Medical Plan: Recent LDL level is slightly elevated, 113, HDL level is slightly low, 34. Advised to limit foods high in saturated fat and avoid foods high in trans fat. Routine exercise encouraged. Will check lipid panel periodically or if symptomatic. Verbalized understanding and agreed with treatment plan. (2) Elevated AST (SGOT): Code(s): R74.01 - Elevation of levels of liver transaminase levels Category: Medical Plan: Recent AST level is slightly elevated, 48. Hepatic steatosis is likely. Routine exercise and healthy diet, including low fatty foods encouraged. Will repeat liver panel lab and make changes as needed. Fast for 10-12 hours, may drink water, and perform blood work 2-3 days before next visit. Verbalized understanding and agreed with the plan. (3) Anxiety: Code(s): F41.9 - Anxiety disorder, unspecified Category: Medical Plan: Significantly improve on hydroxyzine. Sleep has also improved. Continue current treatment regimen. Routine exercise encouraged. Follow-up in 2 months or sooner with symptoms or concerns. Verbalized understanding and agreed with the plan. Orders: Orders Liver Panel 2 Months R74.01 - Elevation of levels of liver transaminase levels Testosterone, Total Today F41.9 - Anxiety disorder, unspecified
--- OUTSIDE RECORDS SUMMARY | 2024-11-12 16:25 | XMS_ITS | Continuity of Care Document ---
Author Name [facility] Organization [facility] Care Team Providers Care Recovery Agent Name Role Phone [facility] Unavailable Unavailable Problems [...] 10/04/2022 Condition DoD ASSESSMENT, POST-DEPL[place]MENT, [id number] Inactive 03/01/2019 Condition DoD High risk heterosexual [...] Known Allergies Drug allergy (disorder) active 10/24/2015 [facility] Treatment [facility] [place] [address] Immunizations Combined list of available immunizations from the Department of Defense and Veterans Affairs facilities. Immunization Series Date Given Administered By Site Reaction Lot Number CVX Code Drug Lead Programmer Status Comments Source influenza, injectable, quadrivalent- pf 2021 [id number] [employer] dc complet ed influenza , injectabl e, quadrival ent-pf 08/30/22 Given Ambulat ory Pharmac y typhoid Vi capsular polysaccharid e vac 2021 [id number] sanofi pasteur complet ed typhoid Vi capsular polysacch aride vac 07/18/22 Given Ambulat ory Pharmac y yellow fever vaccine 2021 [id number] 37 sanofi pasteur complet ed yellow fever vaccine 07/18/22 Given Ambulat ory Pharmac y meningococcal A,C,Y,W-135 (MCV4P) 2021 [id number] 114 sanofi pasteur complet ed meningoco ccal A,C,Y,W-1 35 (MCV4P) 07/18/22 Given Ambulat ory Pharmac y influenza, injectable, quadrivalent 2020 [id number] 158 [employer] dc complet ed influenza , injectabl e, quadrival ent 08/22/21 Given Ambulat ory Pharmac y influenza, injectable, quadrivalent, contains preservative 0 2020 [id number] 158 [facility] (SKB) complet ed influenza , injectabl e, quadrival ent, contains preservat alexey DoD COVID Vaccine Moderna 2020 [id number] complet ed COVID Vaccine Moderna 02/20/21 Given Ambulat ory Pharmac y SARS-COV-2 (COVID-19) vaccine, mRNA, spike protein, LNP, preservative free, 100 mcg or 50 mcg dose 2 2020 [id number] 207 Moderna US, Inc. (MOD) complet ed SARS-COV- 2 (COVID-19 ) vaccine, mRNA, spike protein, LNP, preservat alexey free, 100 mcg or 50 mcg dose DoD COVID Vaccine Moderna 2020 [id number] complet ed COVID Vaccine Moderna 01/23/21 Given Ambulat ory Pharmac y SARS-COV-2 (COVID-19) vaccine, mRNA, spike protein, LNP, preservative free, 100 mcg or 50 mcg dose 1 2020 [id number] 207 Moderna [employer], Inc. (MOD) complet ed SARS-COV- 2 (COVID-19 ) vaccine, mRNA, spike protein, LNP, preservat alexey free, 100 mcg or 50 mcg dose DoD influenza, injectable, quadrivalent, preservative free 2019 BARRY, () Not Given influenza , injectabl e, quadrival ent, preservat alexey free DoD influenza, injectable, quadrivalent- pf 2018 [id number] 150 Seqirus complet ed influenza , injectabl e, quadrival ent-pf 09/08/19 Given Ambulat ory Pharmac y Influenza, injectable, quadrivalent, preservative free 0 2018 [id number] 150 Seqirus (SEQ) complet ed Influenza , injectabl e, quadrival ent, preservat alexey free DoD anthrax vaccine 2018 [id number] 24 Emergent Biosolutions complet ed anthrax vaccine 12/01/18 Given Ambulat ory Pharmac y anthrax vaccine 3 2018 [id number] 24 [employer]gent [employer] Amy (MIP) complet ed anthrax vaccine DoD influenza, injectable, quadrivalent 2017 [id number] 158 GlaxoSmithKli ne complet ed influenza , injectabl e, quadrival ent 09/25/18 Given Ambulat ory Pharmac y influenza, injectable, quadrivalent, contains preservative 0 2017 [id number] 158 SmithKline (SKB) complet ed influenza , injectabl e, quadrival ent, contains preservat alexey DoD anthrax vaccine 2017 [id number] 24 Emergent [employer]olutions complet ed anthrax vaccine 06/21/18 Given Ambulat ory Pharmac y anthrax vaccine 2 2017 [id number] 24 [employer] [place] (MIP) complet ed anthrax vaccine DoD anthrax vaccine 2017 [id number] 24 Emergent [employer]olutions complet ed anthrax vaccine 04/15/18 Given Ambulat ory Pharmac y typhoid Vi capsular polysaccharid e vac 2017 [id number] 101 sanofi pasteur complet ed typhoid Vi capsular polysacch aride vac 04/15/18 Given Ambulat ory Pharmac y anthrax vaccine 1 2017 [id number] 24 [employer] Amy (MIP) complet ed anthrax vaccine DoD typhoid Vi capsular polysaccharid e vaccine 1 2017 [id number] 101 Sanofi Pasteur (PMC) complet ed typhoid Vi capsular polysacch aride vaccine DoD Influenza, inj, MDCK, quadrivalent- pf 2016 [id number] Seqirus complet ed Influenza , inj, [...] vaccine, adult dosage 2 2015 [id number] 52 [facility] ([facility]) complet ed hepatitis A vaccine, adult dosage DoD influenza, seasonal, injectable-pf 2015 [id number] 140 Seqirus complet ed influenza , seasonal, injectabl e-pf 09/11/16 Given Ambulat ory Pharmac y Influenza, seasonal, injectable, preservative free 2 2015 [id number] 140 Seqirus (SEQ) comple t ed Influenza , seasonal, injectabl e, preservat alexey free DoD hepatitis A adult vaccine 2014 [id number] 52 GlaxoSmithKli ne complet ed hepatitis A adult vaccine 10/22/15 Given Ambulat ory Pharmac y hepatitis A vaccine, adult dosage 1 2014 [id number] [facility] complet ed hepatitis A vaccine, adult dosage DoD tetanus, diphtheria, acellular pertu is 2014 [id number] 115 GlaxoSmithKli ne complet ed tetanus, diphtheri a, acellular pertussis 10/17/15 Given Ambulat ory Pharmac y poliovirus vaccine, inactivated 2014 [id number] 10 sanofi pasteur complet ed polioviru s vaccine, inactivat ed 10/17/15 Given Ambulat ory Pharmac y meningococcal A,C,Y,W-135 (MCV4P) 2014 [id number] 114 sanofi pasteur complet ed meningoco ccal A,C,Y,W-1 35 (MCV4P) 10/17/15 Given Ambulat ory Pharmac y tuberculin purified protein derivative 2014 [id number] 96 sanofi pasteur complet ed tuberculi n purified protein derivativ e 10/17/15 Given Ambulat ory Pharmac y adenovirus vaccine, live 2014 [id number] 143 Teva Pharmaceutica ls complet ed adenoviru s vaccine, live 10/17/15 Given Ambulat ory Pharmac y influenza, seasonal, injectable-pf 2014 [id number] 140 CSL Behring complet ed influenza , seasonal, injectabl e-pf 10/17/15 Given Ambulat ory Pharmac y poliovirus vaccine, inactivated 1 2014 [id number] 10 Sanofi Pasteur ([facility]) complet ed polioviru s vaccine, inactivat ed DoD meningococcal polysaccharid e (groups A, C, Y and W-135) diphtheria toxoid conjugate vaccine (MCV4P) 1 2014 [id number] 114 Sanofi Pasteur ([facility]) complet ed meningoco ccal polysacch aride (groups A, C, Y and W-135) diphtheri a toxoid conjugate vaccine (MCV4P) DoD tetanus toxoid, reduced diphtheria toxoid, and acellular pertu is vaccine, adsorbed 1 2014 [id number] 115 Aura XM (SKB) complet ed tetanus toxoid, reduced diphtheri a toxoid, and acellular pertussis vaccine, adsorbed DoD Influenza, seasonal, injectable, preservative free 1 2014 [id number] 140 CSL Biotherapies, Inc. (CSL) complet ed Influenza , seasonal, injectabl e, preservat alexey free DoD Adenovirus, type 4 and type 7, live, oral 1 2014 [id number] 143 [facility] (BRR) complet ed Adenoviru s, type [...] Prevention' s HIV diagnostic algorithm. Refer to [facility] Lab Guide for additional information : [email or web address] x Testing performed by [employer] jerel kidd. Performed by: Epidemiolog y Laboratory Service [email or web address] [id number] [place] [phone] Ambulator y Pharmacy Seguricel luzma Sendouts Repository Sample.EPI RECEIVED 02/23 Result Comment: INTERPRETAT ION(S): Performed by: Epidemiolog y Laboratory Service [email or web address] [id number] [place] [phone] Ambulator y Pharmacy Vital Signs Combined list [...] ADM Date DC Date Status Disposition [place] [address](Hea ring Conservat ion, BMT) OUTPATIENT [id number] JAQUELIN PRINCE 10/21 Released w/o Limitations [facility] [place] [address](H earing Conserv ation, BMT) [place] [address]([facility]) OUTPATIENT [id number] Notes Entered by: Venkata VALERIO 23 Oct 2015 0954 ------- ------- ------- ------- -- strep prophyl axis SCHAFFERMIAH PICKERING Venkata 10/23 Released w/o Limitations [facility] [place] [address]([facility] teofilo) [place] [address](MEI Raza) OUTPATIENT [id number] Notes Entered by: CHIDI BENNETT 04 Nov 2015 1518 ------- ------- ------- ------- -- cold pack FANG BENNETT 11/04 Released w/o Limitations [facility] [place] [address](Christine Raza) [facility], [place] [address]([facility], [facility]) OUTPATIENT [id number] [facility] NUTRITI ON MARCIA FABIAN Christine 12/17 Released w/o Limitations [facility] [place] [address](Pablo mckeon Medicin e, [facility]) [facility], [place] [address]([facility]) OUTPATIENT [id number] request IRINA Cardoso 12/18 Released with Work/Duty Limitations [place] [address]([facility] teofilo) Theater Facility OUTPATIENT [id number] Theater Provider 08/28 Released with Work/Duty Limitations [facility] OUTPATIENT [id number] Theater Provider 12/01 Released w/o Limitations [facility] OUTPATIENT [id number] 7 Theater Provider 12/06 Released w/o Limitations [facility] OUTPATIENT [id number] 2 Theater Provider 12/30 Released w/o Limitations [facility] OUTPATIENT [id number] 2 Theater Provider 01/18 Released w/o Limitations [facility] OUTPATIENT [id number] 1 Theater Provider 02/26 Released w/o Limitations [facility] OUTPATIENT [id number] Theater Provider 02/26 Released w/o Limitations [facility] OUTPATIENT [id number] 7 Theater Provider 02/26 Released w/o Limitations [facility] OUTPATIENT [id number] Theater Provider 02/28 Released w/o Limitations [facility] OUTPATIENT [id number] 4 Theater Provider 03/01 Released w/o Limitations Theater Facilit y [facility]) TELE CONSULT [id number] 2 Notes Entered by: ANGELIA CUEVAS 04 Aug 2022 141 ------- ------- ------- ------- -- Deploy ent Medicat BUZZ Mathis 08/04 [facility]( light Medicin e [facility]) [facility]) TELE CONSULT [id number] Notes Entered by: AVI ALMONTE 12 Aug 2022 1604 ------- ------- ------- ------- -- COVID-1 9 FILIBERTO Martinez 08/12 [facility]) Theater Facility OUTPATIENT [id number] Theater Provider 10/01 Released w/o Limitations [facility] OUTPATIENT [id number] 7 Theater Provider 02/08 Released w/o Limitations Theater Facilit y [id number]-[id number] AMDS Outpatient [id number] CARLIN ARRIAGA 12/08 Discharge Disposition: Home or Self Care 8344R-4 39 AMDS 8344R-439 AMDS Dental [id number] FRITZ HARRELL 01/12 Discharge Disposition: Home or Self Care 8344R-4 39 AMDS 8344R-439 AMDS Between Visit [id number] 09/24 Discharge Disposition: Home or Self Care [...] Diagnostic Evaluation Review of Records and Reports [id number] GAMA MORAN [facility] Psychometric Neuropsych Testing Battery Admin By Computer Psychometric Neuropsych Testing Battery Admin By Computer [id number] GAMA MORAN [facility] Medical Nutrition Therapy Group (2 or More Individuals) Each 30 Minutes Medical Nutrition Therapy Group (2 or More Individuals) Each 30 Minutes [id number] MARCIA SMYTH [facility] Physician Supervised Injection Intramuscular Antibiotic Physician Supervised Injection Intramuscular Antibiotic [id number] 015 BARBIE MAGANA [facility] Threshold Audiogram (Pure Tone) Automated Threshold Audiogram (Pure Tone) Automated 0208T 015 JAQUELIN PRINCE [facility] NEUROPSYCHOLOGICAL TESTING (EG, [place] CARD SORTING TEST), ADMINISTERED BY A COMPUTER, WITH QUALIFIED HEALTH MEDICAL HISTORIAN INTERPRETATION AND REPORT 018 [facility] MEDICAL NUTRITION THERAPY; GROUP (2 OR MORE INDIVIDUAL(S)), EACH 30 MINUTES 016 [facility] THERAPEUTIC, PROPHYLACTIC, OR DIAGNOSTIC INJECTION (SPECIFY SUBSTANCE OR DRUG); SUBCUTANEOUS OR INTRAMUSCULAR [facility] PURE TONE AUDIOMETRY (THRESHOLD), AUTOMATED; AIR ONLY 015 [facility] Social History Combined list of [...] Heart:?Normal Comments: ANNUAL PERIODIC HEALTH ASSESSMENT I. DUTY MANAGER INFORMATION AND DEMOGRAPHICS (SMI) 1. Last Name: GISSELLE 2. First Name: MICHAEL 3. Middle Name: PERFECTO 4. Assessment Date: 5. : 6. Age: 33 7. Gender: M 8. DoD ID Number: [id number] 9. Service Branch: [employer] 10. 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 Status: Active [employer] [place] 12. 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 Unit Name: [address] [employer] 14. Duty Station/Location: [place] 15. C: [id number] 16. Is this your first Periodic Health Assessment (PHA)?: N 17. Are you enrolled in a secure messaging system with your health care provider?: N 18. Current contact information: Preferred Method: Day Time Phone DSN: [id number] Day Time Phone: [phone] Night Time Phone: [phone] Email 1: [email or web address] Email 2: Address: [address] City: [place]: [place] Zip Code: [address] 19. Point of contact who can always reach you: Name: Ebonie Laird Phone 1: [phone] Phone 2: EMAIL: Address: [address] City: [facility]: [place] Zip Code: [address] II. DEPLOYMENT INFORMATION (DEP) 1. [ 2 [...] easily startled? 6. d. [ No ] [place] numb or detached from others, activities, or your surroundings? 6. e. [ Not answered ] [place] guilt or unable to stop blaming yourself [...] like to schedule a visit with a carding utility tender, mental health care provider, or a community [...] 8. [ None ] What prescriptions or xlrd-ahq-slpnuac medications are you CURRENTLY taking for health problems on a ROUTINE BASIS? 9. Which of the following products have you taken since your last PHA: Protein Supplements/Creatine: Once a week Multi-Vitamins: Once a week Mcalister-3 Supplements: Once a week 11. Think about [...] had a cholesterol check by a health medicare sales executive within the PAST 5 YEARS? 13.a. In [...] discuss any health concerns? XI. SEPARATION AND CORRECTION 1. [ No ] Are you planning to separate or retire within the next year from Active Duty or [place] Duty (activated for greater than 30 continuous days) OR do you intend to file a claim for disability compensation with the Veterans Benefits Administration? PART B. RECORD REVIEW AND RECOMMENDATIONS I. RECORD REVIEWER INFORMATION 1. Last Name: YESSI TRUONG 2. First Name: ALEXIA 3. Middle Name: 4. Service Branch: [employer] 5. 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 EMAIL: [email or web address] 8. Facility: [facility] 9. Unit: [address] [facility] [address] 10. Address: [address] [place] [address] 11. State: [place] 12. Zip Code: [address] 13. Phone: [phone] 14. Date Record Review: II. MEDICAL SCREENING 1. [ ] Date of guardian family member's most recent PHA 2. [ 6 feet 0 inches Date: ] guardian family member's most recently documented height 3. [ 250 pounds Date: ] guardian family member's most recently documented weight 4. [ 130/76 Date: ] guardian family member's most recently documented blood pressure reading 5. [ No ] Does the guardian family member have a history of abnormal blood pressure since their last PHA? 6. [ Yes ] Does the guardian family member have a laboratory test of sickle cell trait documented in their permanent medical record? 7. [ No Cholesterol Test Documented ] What is the date of the guardian family member's most recently documented cholesterol test? 9. [ No Active Medications Documented ] List of guardian family member's active medications listed in their permanent medical record 10. [ No ] Is there a discrepancy between the active medication record review and the guardian family member's self-reported list of medications? 11. [ No Outside Care Documented ] List documented significant care the guardian family member has received since their last PHA from a provider OUTSIDE the Health System 12. [ No ] Is there a discrepancy between the guardian family member's list of OUTSIDE care (from OTH5), and the OUTSIDE care found in the record? 13. [ No Inside Care Documented ] List documented significant care the guardian family member has received since their last PHA from a provider INSIDE the Health System 15. [ Not Answered ] Confirm that vaccine exemptions are listed in the medical record for each vaccine listed IV. FAMILY HISTORY AND LIFESTYLE 1. [ Yes ] Does the [id number] reflect the guardian family member's reported family history? . DEPLOYMENT-RELATED HEALTH ASSESSMENTS 1. [ Yes ] Based on your check of records, does the guardian family member have any due or overdue deployment health assessments which need to be completed with this PHA? VII. INDIVIDUAL MEDICAL READINESS 1. [ No ] Does the guardian family member have an Assignment Limitation Code C? 3. [ Classification: 2 ] Most recently documented dental exam 4. [ No: Influenza, [place] ] Is the guardian family member current on all required immunizations in the immunization tracking system? 6. Does the guardian family member have the following laboratory tests documented [...] need to be forwarded to the Health Type Casting Machine Operator completing PART C: RR completed. JLV did not show any significant findings. Mbr deployed to [facility] from 09/21/22-02/15/23. No profiles. Date Record Review Completed: --------- PART C. HEALTH CARE PROVIDER I. MENTAL HEALTH ASSESSMENT (MHA) PROVIDER INFORMATION 1. Last Name: Rodrigo 2. First Name: Charmaine 3. Middle Name: 4. Service Branch: Other 5. 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 EMAIL: [email or web address] 8. Facility: [facility] Admin Office 9. Unit: N/A 10. [facility] 11. State: [place] 12. Zip Code: [address] 13. 14. Date HCP Review initiated: 1. [...] 3. Middle Name: 4. Service Branch: [employer] 5. 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 EMAIL: [email or web address] 8. Facility: [facility] 9. Unit: [facility] 10. Address: [address] [place] [address] 11. State: [place] 12. Zip Code: [address] 13. Phone: [phone] 14. Date HCP Review initiated: IV. PERIODIC HEALTH ASSESSMENT PROVIDER RECOMMENDATIONS and REFERRALS 1. Provider concerns with this assessment: No issues or concerns identified V. SUMMARY AND COMMENTS 1. Additional information summarizing findings during the guardian family member assessment: 2. Provider Comments: . INDIVIDUAL MEDICAL READINESS DISPOSITION DETERMINATION JAMES: Ready DEN: Not Ready IMM: Ready LAB: Ready ME: Ready IMR Status: Partially Medically Ready VII. SERVICE MEDICAL DEPLOYABILITY EVALUATION INDICATED Based on your review of all documentation, is the guardian family member medically deployable without limitations? Reference [facility] 6490.07 Yes (guardian family member DOES NOT currently have a medical condition that limits deployability) Date PHA Completed: END OF [id number] REPORT Impression:Meets?medical standards per DAFMAN 48-123/MSD. Disposition:?No AF469 changes based on this encounter.[employer] Qualified. 11/12/2024 Ambulatory Pharmacy Functional Status Combined list of recent functional and cognitive assessments recorded at Department of Defense and Veterans Affairs (VA).VA Functional Excel Measurement (FIM) Scale: 1 = Total Assistance (Subject = 0% +), 2 = Maximal Assistance (Subject = 25% +), 3 = Moderate Assistance (Subject = 50% +), 4 = Minimal Assistance (Subject = 75% +), 5 = Supervision, 6 = Modified Excel (Device), 7 = Complete Excel (Timely, Safely). Assessment Date/Time Source Assessment Type Assessment Skill Assessment Score Assessment Details No data available for this section
== END 2024-11-12 14:47 | disposition home or self-care (01) ==
LOC: HO.HMCFM 14:09
PROVIDERS: PCP Nurse Practitioner Family; Visit Provider Nurse Practitioner Family
DX: E78.5 Hyperlipidemia, unspecified (principal); R74.01 Elevation of levels of liver transaminase levels; F41.9 Anxiety disorder, unspecified

== ENCOUNTER 2025-01-11 09:45 | Outpatient (REF) | payer OTHER, SELFPAY ==
--- OUTSIDE RECORDS SUMMARY | 2025-01-11 10:40 | XMS_ITS | Continuity of Care Document ---
Author Name [facility] Organization [facility] Care Team Providers Care Dining Room Tables Set Up Attendant Name Role Phone [facility] Unavailable Unavailable [...] 10/04/2022 Condition DoD ASSESSMENT, POST-DEPLOYMENT, DOCUMENTED ON [id number] Inactive 03/01/2019 Condition DoD High risk heterosexual [...] Known Allergies Drug allergy (disorder) active 10/24/2015 [facility] [place] [address] Immunizations Combined list of available immunizations from the Department of Defense and Veterans Affairs facilities. Immunization Series Date Given Administered By Site Reaction Lot Number CVX Code Drug Manager Security And Safety Status Comments Source influenza, injectable, quadrivalent- pf 2021 [id number] [employer] ms complet ed influenza , injectabl e, quadrival ent-pf 08/30/22 Given Ambulat ory Pharmac y typhoid Vi capsular polysaccharid e vac 2021 [id number] sanofi pasteur complet ed typhoid Vi capsular polysacch aride vac 07/18/22 Given Ambulat ory Pharmac y yellow fever vaccine 2021 [id number] 37 sanofi pasteur complet ed yellow fever vaccine 07/18/22 Given Ambulat ory Pharmac y meningococcal A,C,Y,W-135 (MCV4P) 2021 [id number] 114 sanofi pasteur complet ed meningoco ccal A,C,Y,W-1 35 (MCV4P) 07/18/22 Given Ambulat ory Pharmac y influenza, injectable, quadrivalent 2020 [id number] 158 [employer] ms complet ed influenza , injectabl e, quadrival ent 08/22/21 Given Ambulat ory Pharmac y influenza, injectable, quadrivalent, contains preservative 0 2020 [id number] 158 [facility] (SKB) complet ed influenza , injectabl e, quadrival ent, contains preservat alexey DoD COVID Vaccine Moderna 2020 [id number] complet ed COVID Vaccine Moderna 02/20/21 Given Ambulat ory Pharmac y SARS-COV-2 (COVID-19) vaccine, mRNA, spike protein, LNP, preservative free, 100 mcg or 50 mcg dose 2 2020 [id number] 207 Moderna US, Inc. (MOD) complet ed SARS-COV- 2 (COVID-19 ) vaccine, mRNA, spike protein, LNP, preservat alexey free, 100 mcg or 50 mcg dose DoD COVID Vaccine Moderna 2020 [id number] complet ed COVID Vaccine Moderna 01/23/21 Given Ambulat ory Pharmac y SARS-COV-2 (COVID-19) vaccine, mRNA, spike protein, LNP, preservative free, 100 mcg or 50 mcg dose 1 2020 [id number] 207 Moderna US, Inc. (MOD) complet ed SARS-COV- 2 (COVID-19 ) vaccine, mRNA, spike protein, LNP, preservat alexey free, 100 mcg or 50 mcg dose DoD influenza, injectable, quadrivalent, preservative free 2019 BARRY, () Not Given influenza , injectabl e, quadrival ent, preservat alexey free DoD influenza, injectable, quadrivalent- pf 2018 [id number] 150 Seqirus complet ed influenza , injectabl e, quadrival ent-pf 09/08/19 Given Ambulat ory Pharmac y Influenza, injectable, quadrivalent, preservative free 0 2018 [id number] 150 Seqirus (SEQ) complet ed Influenza , injectabl e, quadrival ent, preservat alexey free DoD anthrax vaccine 2018 [id number] 24 Emergent [employer] complet ed anthrax vaccine 12/01/18 Given Ambulat ory Pharmac y anthrax vaccine 3 2018 [id number] 24 [employer]gent [employer] Amy (MIP) complet ed anthrax vaccine DoD influenza, injectable, quadrivalent 2017 [id number] 158 GlaxoSmithKli ne complet ed influenza , injectabl e, quadrival ent 09/25/18 Given Ambulat ory Pharmac y influenza, injectable, quadrivalent, contains preservative 0 2017 [id number] 158 SmithKline (SKB) complet ed influenza , injectabl e, quadrival ent, contains preservat alexey DoD anthrax vaccine 2017 [id number] 24 [employer] complet ed anthrax vaccine 06/21/18 Given Ambulat ory Pharmac y anthrax vaccine 2 2017 [id number] 24 [employer] Amy (MIP) complet ed anthrax vaccine DoD anthrax vaccine 2017 [id number] 24 [employer] complet ed anthrax vaccine 04/15/18 Given Ambulat ory Pharmac y typhoid Vi capsular polysaccharid e vac 2017 [id number] 101 sanofi pasteur complet ed typhoid Vi capsular polysacch aride vac 04/15/18 Given Ambulat ory Pharmac y anthrax vaccine 1 2017 [id number] 24 [employer] [place] (MIP) complet ed anthrax vaccine DoD typhoid Vi capsular polysaccharid e vaccine 1 2017 [id number] 101 Sanofi Pasteur (PMC) complet ed typhoid Vi capsular polysacch aride vaccine DoD Influenza, inj, MDCK, quadrivalent- pf 2016 [id number] Seqirus complet ed Influenza , inj, MDCK, quadrival ent-pf 09/10/17 Given Ambulat ory Pharmac y Influenza, injectable, Madin Ashford Canine Kidney, preservative free, quadrivalent 3 [id number] 171 Seqirus (SEQ) comple t ed Influenza , injectabl e, Madin Ruby Canine Kidney, preservat alexey free, quadrival ent DoD hepatitis A adult vaccine 2015 [id number] 52 GlaxoSmithKli ne complet ed hepatitis A adult vaccine 10/09/16 Given Ambulat ory Pharmac y hepatitis A vaccine, adult dosage 2 2015 [id number] 52 [facility] ([facility] complet ed hepatitis A vaccine, adult dosage DoD influenza, seasonal, injectable-pf 2015 [id number] 140 Seqirus complet ed influenza , seasonal, injectabl e-pf 09/11/16 Given Ambulat ory Pharmac y Influenza, seasonal, injectable, preservative free 2 2015 [id number] 140 Seqirus (SEQ) comple t ed Influenza , seasonal, injectabl e, preservat alexey free DoD hepatitis A adult vaccine 2014 [id number] 52 GlaxoSmithKli ne complet ed hepatitis A adult vaccine 10/22/15 Given Ambulat ory Pharmac y hepatitis A vaccine, adult dosage 1 2014 [id number] 52 [facility] complet ed hepatitis A vaccine, adult dosage DoD tetanus, diphtheria, acellular pertu is 2014 [id number] 115 GlaxoSmithKli ne complet ed tetanus, diphtheri a, acellular pertussis 10/17/15 Given Ambulat ory Pharmac y poliovirus vaccine, inactivated 2014 [id number] 10 sanofi pasteur complet ed polioviru s vaccine, inactivat ed 10/17/15 Given Ambulat ory Pharmac y meningococcal A,C,Y,W-135 (MCV4P) 2014 [id number] 114 sanofi pasteur complet ed meningoco ccal A,C,Y,W-1 35 (MCV4P) 10/17/15 Given Ambulat ory Pharmac y tuberculin purified protein derivative 2014 [id number] 96 sanofi pasteur complet ed tuberculi n purified protein derivativ e 10/17/15 Given Ambulat ory Pharmac y adenovirus vaccine, live 2014 [id number] 143 Teva Pharmaceutica ls complet ed adenoviru s vaccine, live 10/17/15 Given Ambulat ory Pharmac y influenza, seasonal, injectable-pf 2014 [id number] 140 CSL Behring complet ed influenza , seasonal, injectabl e-pf 10/17/15 Given Ambulat ory Pharmac y poliovirus vaccine, inactivated 1 2014 [id number] 10 Sanofi Pasteur ([facility]) complet ed polioviru s vaccine, inactivat ed DoD meningococcal polysaccharid e (groups A, C, Y and W-135) diphtheria toxoid conjugate vaccine (MCV4P) 1 2014 [id number] 114 Sanofi Pasteur ([facility]) complet ed meningoco ccal polysacch aride (groups A, C, Y and W-135) diphtheri a toxoid conjugate vaccine (MCV4P) DoD tetanus toxoid, reduced diphtheria toxoid, and acellular pertu is vaccine, adsorbed 1 2014 [id number] 115 [employer] (SKB) complet ed tetanus toxoid, reduced diphtheri a toxoid, and acellular pertussis vaccine, adsorbed DoD Influenza, seasonal, injectable, preservative free 1 2014 [id number] 140 CSL Biotherapies, Inc. (CSL) complet ed Influenza , seasonal, injectabl e, preservat alexey free DoD Adenovirus, type 4 and type 7, live, oral 1 2014 [id number] 143 [facility] (BRR) complet ed Adenoviru s, type 4 [...] Reference Range Date Interpretation Specimen Comments Source Infectiou s Disease HIV-1/O/2 Non-Reac tive 3 (01/04/25 11:18 AM) 01/04 N Interpretiv e Data: INTERPRETAT ION: This method is a screening procedure for [...] CONFIRMATIO N TO FOLLOW: Possible presence of HIV-1antibo dies, HIV-2 antibodies and/or HIV-1 p24 antigen. Specimen will reflex to the confirmatio n testing that fulfills the Center for Disease Control and Prevention' s HIV diagnostic algorithm. Refer to HealthTeacher / GoNoodle Lab Guide for additional information : [email or web address]://[employer] [place] [employer]. [facility]/ kj/kx5/EPIL [email or web address]/la [email or web address] x Testing performed by [employer] ce. 5600A-US AFSAM EPILAB Miscellan eous Sendouts Repository Sample Received (01/04/25 11:18 AM) 01/04 N 5600A-US AFSAM EPILAB Infectiou s Disease HIV-1/O/2. EPI NON-REAC TIVE 02/23 Result [...] Prevention' s HIV diagnostic algorithm. Refer to Egr Renovation Lab Guide for additional information : https://[employer]. [facility]/ kj/kx5/EPIL ab/Pages/asa [email or web address] x Testing performed by Nimesh kidd. Performed by: Epidemiolog y Laboratory Service HealthTeacher / GoNoodleAM/PHE [facility] [address] [place] [address], [place] [address] [id number] [place] [address] Miscellan eous Sendouts Repository Sample.EPI RECEIVED 02/23 Result Comment: INTERPRETAT ION(S): Performed by: Epidemiolog y Laboratory Service [employer]yome BiosciencesAM/PHE [facility] [address] [place] [address], [place] [address] [id number] [place] [address] Encounters Combined list of: 1) Encounters from Department of Veterans Affairs facilities going backup to the last 18 months, not all VA inpatient encounters are included; 2) Encounters from the Department of Defense facilities going backup to 280 months. Location Location Details Encounter Type Encounter Number Reason For Visit Attending Provider ADM Date DC Date Status Disposition Source [place] [address](Hea ring Conservat ion, BMT) OUTPATIENT [id number] JAQUELIN PRINCE 10/21 Released w/o Limitations [facility] [place] [place] [address](H earing Conserv ation, BMT) [place] [address](Srikanth [facility]) OUTPATIENT [id number] Notes Entered by: Venkata VALERIO 23 Oct 2015 0954 ------- ------- ------- ------- -- strep prophyl MIAH Arnold 10/23 Released w/o Limitations [facility] [place] [address](Del[facility] teofilo) [place] [address](MEI Raza) OUTPATIENT [id number] Notes Entered by: CHIDI BENNETT 04 Nov 2015 1518 ------- ------- ------- ------- -- cold pack FANG BENNETT 11/04 Released w/o Limitations [facility] [place] [address](Christine Raza) [facility] [place] [address]([facility], [facility]) OUTPATIENT [id number] [facility] NUTRITI ON MARCIA FABIAN 12/17 Released w/o Limitations [facility] [place] [address](N utritio mike Medicin e, [facility]) [facility] [place] [address](Srikanth [facility]) OUTPATIENT [id number] request ing shawero waIRINA Vera 12/18 Released with Work/Duty Limitations [facility] [place] [address]([facility] d) Theater Facility OUTPATIENT [id number] Theater Provider 08/28 Released with Work/Duty Limitations [facility] OUTPATIENT [id number] Theater Provider 12/01 Released w/o Limitations [facility] OUTPATIENT [id number] 7 Theater Provider 12/06 Released w/o Limitations [facility] OUTPATIENT [id number] 2 Theater Provider 12/30 Released w/o Limitations [facility] OUTPATIENT [id number] 2 Theater Provider 01/18 Released w/o Limitations [facility] OUTPATIENT [id number] 1 Theater Provider 02/26 Released w/o Limitations [facility] OUTPATIENT [id number] Theater Provider 02/26 Released w/o Limitations [facility] Facility OUTPATIENT [id number] 7 Theater Provider 02/26 Released w/o Limitations [facility] Theater Facility OUTPATIENT [id number] 6 Theater Provider 02/28 Released w/o Limitations [facility] Theater Facility OUTPATIENT [id number] 4 Theater Provider 03/01 Released w/o Limitations Theater Facilit y [facility]) TELE CONSULT [id number] Notes Entered by: ANGELIA CUEVAS 04 Aug 2022 141 ------- ------- ------- ------- -- Deploym ent Medicat ashli BUZZ NICE Venkata 08/04 [employer]([facility] Medicin e [facility]) [employer]([facility]) TELE CONSULT [id number] Notes Entered by: AVI ALMONTE 12 Aug 2022 1604 ------- ------- ------- ------- -- COVID-1 9 FILIBERTO Martinez 08/12 [employer]([facility]) Theater Facility OUTPATIENT [id number] 7 Theater Provider 10/01 Released w/o Limitations Theater Facilit y Theater Facility OUTPATIENT [id number] 7 Theater Provider 02/08 Released w/o Limitations Theater Facilit y 8344R-439 AMDS Between Visit [id number] 11/27 Discharge Disposition: Home or Self Care 8344R-4 39 AMDS 8344R-439 AMDS Between Visit [id number] 12/06 Discharge Disposition: Home or Self Care 8344R-4 39 AMDS 8344R-439 AMDS Care Not Rendered [id number] 12/27 Discharge Disposition: Home or Self Care 8344R-4 39 AMDS 8344R-439 AMDS Outpatient [id number] CARLIN ARRIAGA 01/04 Discharge Disposition: Home or Self Care 8344R-4 39 AMDS 8344R-439 AMDS Outpatient [id number] CARLIN ARRIAGA 01/05 Discharge Disposition: Home or Self Care 8344R-4 39 AMDS Procedures Combined list of: 1) Procedures from Department of Veterans Affairs facilities going back up to thelast 18 months, not all VA non-surgical procedures are included; 2) All procedures from the Department of Defense facilities. Procedure Procedure Type Code Date Perfomer Comments Sourc e No data available for this section Ambulatory Pharmacy Psychiatric Diagnostic Evaluation Review of Records and Reports Psychiatric Diagnostic Evaluation Review of Records and Reports [id number] 08/11/2 GAMA DE SANTIAGOELLE [facility] Psychometric Neuropsych Testing Battery Admin By Computer Psychometric Neuropsych Testing Battery Admin By Computer 87022 GAMA MORAN [facility] Medical Nutrition Therapy Group (2 or More Individuals) Each 30 Minutes Medical Nutrition Therapy Group (2 or More Individuals) Each 30 Minutes [id number] MARCIA SMYTH [facility] Physician Supervised Injection Intramuscular Antibiotic Physician Supervised Injection Intramuscular Antibiotic [id number] BARBIE MAGANA [facility] Threshold Audiogram (Pure Tone) Automated Threshold Audiogram (Pure Tone) Automated 0208T JAQUELIN PRINCE [facility] NEUROPSYCHOLOGICAL TESTING (EG, [place] CARD SORTING TEST), ADMINISTERED BY A COMPUTER, WITH QUALIFIED HEALTH TABLEAU ARCHITECT INTERPRETATION AND REPORT [facility] MEDICAL NUTRITION THERAPY; GROUP (2 OR MORE INDIVIDUAL(S)), EACH 30 MINUTES [facility] THERAPEUTIC, PROPHYLACTIC, OR DIAGNOSTIC INJECTION (SPECIFY SUBSTANCE OR DRUG); SUBCUTANEOUS OR INTRAMUSCULAR [facility] PURE TONE AUDIOMETRY (THRESHOLD), AUTOMATED; AIR ONLY [facility] Social History Combined list of available smoking, tobacco, and other social history from Department of Defense and Veterans Affairs facilities. Social History Type Response Date Comment Sour e Sex Representation Male 09/27/2022 Unknow n Organization Sexual Orientation Ambula tory Pharmacy Gender identity Ambulator y Pharmacy This section is an empty soc ial history section. [facility] Assessment and Plan Combined list of future care activities from Department of Defense and Veterans Affairs facilities (e.g., assessment and plan notes, appointments, orders, and referrals). Additional future care activities may be listed in the Plan of Care section. Result Assessment and Plan Date Source Assessment and Plan Extracted from:Title : AUoF PHA Author: CATIA LEAHY Date: 01/04/25 mbr came in for appt Addendum by SEBAS MCCORMACK on January 04, 2025 10:53 EST ?Vitals: Blood Pressure:???114/75 Heart Rate: 65 Height:74'' Weight:255lbs Medications: preworkout, protein powder Chronic Problems:NONE SF 507: N/A Comments:NONE Addendum by SOUTH DELGADILLO V on January 04, 2025 10:58 EST History of Refractive Surgery- No?Contact Lenses- N/A?Gas Mask Inserts ordered- No?Current SRX on file- No DVA (Uncorrected) OD: 20/20 OS:?20/20\ NVA (Uncorrected) OD: 20/20 OS: 20/20 Peripheral Vision Testing: WNL OU Color Vision Testing: WNL OU Optometry findings meet standards- Yes Addendum by MENG JO MD on January 04, 2025 11:37 EST Chief Complaint: Member here for annual PHA.?No acute complaints.?IMR?green. HEENT:?Normal Joints:?Normal Lungs:?Normal Heart:?Normal Comments: ?ANNUAL PERIODIC HEALTH ASSESSMENT I. [employer]O [employer] INFORMATION [employer] DEMOGRAPH[employer] (SMI) 1. Last Name: PITTS 2. First Name: MICHAEL 3. Middle Name: PERFECTO 4. Assessment Date: 5. : 6. Age: 34 7. Gender: M 8. DoD ID Number: [id number] 9. Service Branch: [email or web address] 10. 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 Unit Name: [facility] [employer] 14. Duty Station/Location: [place] 15. UIC: [id number] 16. Is this your first Periodic Health Assessment (PHA)?: N 17. Are you enrolled in a secure messaging system with your health care provider?: Y 18. Current contact information: Preferred Method: Day Time Phone DSN: [id number] Day Time Phone: [phone] Night Time Phone: [phone] Email 1: [email or web address] Email 2: Address: [address] City: [place]: [place] Zip Code: [address] 19. Point of contact who can always reach you: Name: Shari Laird Phone 1: [phone] Phone 2: [phone] EMAIL: [email or web address] Address: [address] City: [place]: [place] Zip Code: [address] II. DEPLOYMENT INFORMATION (DEP) 1. [ 1 ] Total number of deployments in the PAST 5 YEARS 2. [ [place] ] Primary country of last deployment 3. [ ] Date departed theater 4. [ N ] Are you going to deploy within the NEXT 120 DAYS? III. 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 [ [...] if so, what is your status? [ New skin condition, Recurring muscle, joint, or low back pain, Recurring headaches/migraines ] Conditions with no medical care [ [...] open burn pit was used? 5. [ Yes ] Have you been exposed to toxic airborne chemicals or other airborne contaminants? 6. [ No ] Are you enrolled in the Airborne Hazards and Open Burn Pit Registry? 7. [ Yes ] Federal law requires eligible members to [...] . BEHAVIORAL HEALTH (MHA) 1. a. [ sleep sleep ] Over the PAST MONTH, what major life stressors have you experienced that are a cause of significant concern or make it difficult for you to do your work, take care of things at home, or get along with other people (for example, serious conflicts with others, relationship problems, or a legal, disciplinary or financial problem)? 1. b. [ Yes ] Are you currently in treatment or getting professional help for this concern? 2. a. [ No ] In the [...] easily startled? 6. d. [ No ] [place] numb or detached from others, activities, or your surroundings? 6. e. [ Not answered ] [place] guilt or unable to stop blaming yourself [...] like to schedule a visit with a strategic consultant, mental health care provider, or a community [...] 8. [ None ] What prescriptions or wjng-phy-znghrat medications are you CURRENTLY taking for health problems on a ROUTINE BASIS? 9. Which of the following products have you taken since your last PHA: Protein Supplements/Creatine: Once a day Multi-Vitamins: Once a day [place]-3 Supplements: Once a day 11. Think about the PAST 30 DAYS. How often did you eat/drink the following foods/beverages? [ 1 or 2 servings per week ] Fruits [ 3 to 6 servings per week ] Vegetables [ 1 or 2 servings per week ] Starchy Vegetables [ 3 to 6 servings per week ] Whole Grains [ 1 or 2 servings per week ] Dairy and Calcium Containing Foods [ 1 or 2 servings per week ] Fish [ 2 servings per day ] Lean Protein [ Rarely or Never ] Sugar-Sweetened Beverages ] Have you had a cholesterol check by a health patient care specialist within the PAST 5 YEARS? 13.a. In the PAST 30 DAYS, which of the following products have you used on at least one day? None 15. Which of the following best describes your past tobacco use? I used tobacco in the past, but quit in 2022 16. [ No ] Are you regularly exposed to secondhand smoke? 17. [ 7 to 9 hours ] During the LAST 2 WEEKS, [...] discuss any health concerns? XI. SEPARATION AND INTERMEDIATE 1. [ No ] Are you planning to separate or retire within the next year from Active Duty or [place] Duty (activated for greater than 30 continuous days) OR do you intend to file a claim for disability compensation with the Veterans Benefits Administration? PART B. RECORD REVIEW AND RECOMMENDATIONS I. RECORD REVIEWER INFORMATION 1. Last Name: BEATA 2. First Name: VIRA 3. Middle Name: 4. Service Branch: [employer] 5. 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 EMAIL: [email or web address] 8. Facility: [facility] 9. Unit: [facility] 10. Address: [address] [place] [address] 11. State: [place] 12. Zip Code: [address] 13. 14. Date Record Review: II. MEDICAL SCREENING 1. [ ] Date of hospitality team member's most recent PHA 2. [ 6 feet 1 inches Date: ] hospitality team member's most recently documented height 3. [ 251 pounds Date: ] hospitality team member's most recently documented weight 4. [ 135/80 Date: ] hospitality team member's most recently documented blood pressure reading 5. [ No ] Does the hospitality team member have a history of abnormal blood pressure since their last PHA? 6. [ Yes ] Does the hospitality team member have a laboratory test of sickle cell trait documented in their permanent medical record? 7. [ No Cholesterol Test Documented ] What is the date of the hospitality team member's most recently documented cholesterol test? 9. [ No Active Medications Documented ] List of hospitality team member's active medications listed in their permanent medical record 10. [ No ] Is there a discrepancy between the active medication record review and the hospitality team member's self-reported list of medications? 11. [ No Outside Care Documented ] List documented significant care the hospitality team member has received since their last PHA from a provider OUTSIDE the Health System 12. [ No ] Is there a discrepancy between the hospitality team member's list of OUTSIDE care (from OTH5), and the OUTSIDE care found in the record? 13. [ No Inside Care Documented ] List documented significant care the hospitality team member has received since their last PHA from a provider INSIDE the Health System 15. [ Not Answered ] Confirm that vaccine exemptions are listed in the medical record for each vaccine listed IV. FAMILY HISTORY AND LIFESTYLE 1. [ Yes ] Does the [id number] reflect the hospitality team member's reported family history? . DEPLOYMENT-RELATED HEALTH ASSESSMENTS 1. [ Yes ] Based on your check of records, does the hospitality team member have any due or overdue deployment health assessments which need to be completed with this PHA? VII. INDIVIDUAL MEDICAL READINESS 1. [ No ] Does the hospitality team member have an Assignment Limitation Code C? 3. [ Classification: 2 ] Most recently documented dental exam 4. [ Yes ] Is the hospitality team member current on all required immunizations in the immunization tracking system? 6. Does the hospitality team member have the following laboratory tests documented [...] need to be forwarded to the Health Student Outreach Coordinator completing PART C: New skin condition - didn't get care Recurring muscle, joint, or low back pain - didn't get care Recurring headaches/migraines - didn't get care PAST MONTH major life stressor: sleep - didn't get care JLV reviewed. No significant findings. Date Record Review Completed: PART C. HEALTH CARE PROVIDER I. MENTAL HEALTH ASSESSMENT (MHA) PROVIDER INFORMATION 1. Last Name: SOSAMARILEE 2. First Name: SHANNAN 3. Middle Name: 4. Service Branch: Other 5. 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 EMAIL: [email or web address] 8. Facility: [facility] Admin Office 9. Unit: N/A 10. [facility] [address] [facility] 11. State: [place] 12. Zip Code: [address] 13. 14. Date HCP Review initiated: 1. Member marked that they have a concern or a difficulty with a major life stressor: sleep Additional info: 2. Address concerns identified on member questions 2 and 3. History of mental health care: N/A Member's response: Provider's comments: Medications: N/A Member's response: Provider's comments: 3. Member's AUDIT-C [...] No 6. g. Further risk assessment comments: None 7. Member states that they have not had thoughts or concerns over the past month that they might hurt or lose control with someone. 9. Summary of Provider's identified concerns needing referrals: None 11. Comments: is in process of setting up sleep study for sleep-related concerns 13. Supplemental services recommended/information provided: No supplemental services required Date A Certified: III. PERIODIC HEALTH ASSESSMENT (PHA) PROVIDER INFORMATION 1. Last Name: VENKAT 2. First Name: MENG 3. Middle Name: NITZA 4. Service Branch: [employer] 5. 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 EMAIL: [email or web address] 8. Facility: [facility] 9. Unit: [facility] 10. Address: [address] [place] [address] 11. State: [place] 12. Zip Code: [address] 13. Phone: [phone] 14. Date HCP Review initiated: IV. PERIODIC HEALTH ASSESSMENT PROVIDER RECOMMENDATIONS and REFERRALS 1. Provider concerns with this assessment: No issues or concerns identified V. SUMMARY AND COMMENTS 1. Additional information summarizing findings during the hospitality team member assessment: 2. Provider Comments: No issues or concerns identified. . INDIVIDUAL MEDICAL READINESS DISPOSITION DETERMINATION JAMES: Ready DEN: Ready IMM: Ready LAB: Ready ME: Ready IMR Status: Fully Medically Ready VII. SERVICE MEDICAL DEPLOYABILITY EVALUATION INDICATED Based on your review of all documentation, is the hospitality team member medically deployable without limitations? Reference Nguyễn 6490.07 Yes (hospitality team member DOES NOT currently have a medical condition that limits deployability) Date PHA Completed: END OF [id number] REPORT Impression:Meets?medical standards per CLAUS 48-123/MSD. Disposition:?No AF469 changes based on this encounter.World-Wide Qualified. Extracted from:Title: AUoF PHA / MHA Author: CATIA LEAHY [...] Heart:?Normal Comments: ANNUAL PERIODIC HEALTH ASSESSMENT I. PIANO TUNER INFORMATION AND DEMOGRAPHICS (SMI) 1. Last Name: PITTS 2. First Name: MICHAEL 3. Middle Name: SONIASERGEY 4. Assessment Date: 5. : 6. Age: 33 7. Gender: M 8. Do[employer] ID Number: [id number] 9. Service Branch: [employer] 10. 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 Unit Name: [employer] 14. Duty Station/Location: [place] 15. UIC: [id number] 16. Is this your first Periodic Health Assessment (PHA)?: N 17. Are you enrolled in a secure messaging system with your health care provider?: N 18. Current contact information: Preferred Method: Day Time Phone DSN: [id number] Day Time Phone: [phone] Night Time Phone: [phone] Email 1: [email or web address] Email 2: Address: [address] [place] [address] City: [facility]: [place] Zip Code: [address] 19. Point of contact who can always reach you: Name: Ebonie Laird Phone 1: [phone] Phone 2: EMAIL: Address: [address] [facility] City: [facility]: [place] Zip Code: [address] II. DEPLOYMENT INFORMATION (DEP) 1. [ 2 [...] easily startled? 6. d. [ No ] [place] numb or detached from others, activities, or your surroundings? 6. e. [ Not answered ] [place] guilt or unable to stop blaming yourself [...] like to schedule a visit with a strategic consultant, mental health care provider, or a community [...] 8. [ None ] What prescriptions or [id number] medications are you CURRENTLY taking for health problems on a ROUTINE BASIS? 9. Which of the following products have you taken since your last PHA: Protein Supplements/Creatine: Once a week Multi-Vitamins: Once a week [place]-3 Supplements: Once a week 11. Think about [...] had a cholesterol check by a health patient care specialist within the PAST 5 YEARS? 13.a. In [...] discuss any health concerns? XI. SEPARATION AND INTERMEDIATE 1. [ No ] Are you planning to separate or retire within the next year from Active Duty or [place] Duty (activated for greater than 30 continuous days) OR do you intend to file a claim for disability compensation with the Veterans Benefits Administration? PART B. RECORD REVIEW AND RECOMMENDATIONS I. RECORD REVIEWER INFORMATION 1. Last Name: YESSI TRUONG 2. First Name: ALEXIA 3. Middle Name: 4. Service Branch: [employer] 5. 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 EMAIL: [email or web address] 8. Facility: [facility] 9. Unit: [facility] 10. Address: [facility] [address] [place] 11. State: [place] 12. Zip Code: [address] 13. Phone: [phone] 14. Date Record Review: II. MEDICAL SCREENING 1. [ ] Date of hospitality team member's most recent PHA 2. [ 6 feet 0 inches Date: ] hospitality team member's most recently documented height 3. [ 250 pounds Date: ] hospitality team member's most recently documented weight 4. [ 130/76 Date: ] hospitality team member's most recently documented blood pressure reading 5. [ No ] Does the hospitality team member have a history of abnormal blood pressure since their last PHA? 6. [ Yes ] Does the hospitality team member have a laboratory test of sickle cell trait documented in their permanent medical record? 7. [ No Cholesterol Test Documented ] What is the date of the hospitality team member's most recently documented cholesterol test? 9. [ No Active Medications Documented ] List of hospitality team member's active medications listed in their permanent medical record 10. [ No ] Is there a discrepancy between the active medication record review and the hospitality team member's self-reported list of medications? 11. [ No Outside Care Documented ] List documented significant care the hospitality team member has received since their last PHA from a provider OUTSIDE the Health System 12. [ No ] Is there a discrepancy between the hospitality team member's list of OUTSIDE care (from OTH5), and the OUTSIDE care found in the record? 13. [ No Inside Care Documented ] List documented significant care the hospitality team member has received since their last PHA from a provider INSIDE the Health System 15. [ Not Answered ] Confirm that vaccine exemptions are listed in the medical record for each vaccine listed IV. FAMILY HISTORY AND LIFESTYLE 1. [ Yes ] Does the [id number] reflect the hospitality team member's reported family history? . DEPLOYMENT-RELATED HEALTH ASSESSMENTS 1. [ Yes ] Based on your check of records, does the hospitality team member have any due or overdue deployment health assessments which need to be completed with this PHA? VII. INDIVIDUAL MEDICAL READINESS 1. [ No ] Does the hospitality team member have an Assignment Limitation Code C? 3. [ Classification: 2 ] Most recently documented dental exam 4. [ No: Influenza, [place] ] Is the hospitality team member current on all required immunizations in the immunization tracking system? 6. Does the hospitality team member have the following laboratory tests documented [...] need to be forwarded to the Health Student Outreach Coordinator completing PART C: RR completed. JLV did not show any significant findings. Mbr deployed to [facility] from 09/21/22-02/15/23. No profiles. Date Record Review Completed: PART C. HEALTH CARE PROVIDER I. MENTAL HEALTH ASSESSMENT (MHA) PROVIDER INFORMATION 1. Last Name: Rodrigo 2. First Name: Charmaine 3. Middle Name: 4. Service Branch: Other 5. 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 EMAIL: [email or web address] 8. Facility: [facility] Admin Office 9. Unit: N/A 10. [facility] 11. State: [place] 12. Zip Code: [address] 13. 14. Date HCP Review initiated: 1. [...] [employer] 5. 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 EMAIL: [email or web address] 8. Facility: [facility] 9. Unit: [facility] 10. Address: [address] [place] [address] 11. State: [place] 12. Zip Code: [address] 13. Phone: [phone] 14. Date HCP Review initiated: IV. PERIODIC HEALTH ASSESSMENT PROVIDER RECOMMENDATIONS and REFERRALS 1. Provider concerns with this assessment: No issues or concerns identified V. SUMMARY AND COMMENTS 1. Additional information summarizing findings during the hospitality team member assessment: 2. Provider Comments: . INDIVIDUAL MEDICAL READINESS DISPOSITION DETERMINATION JAMES: Ready DEN: Not Ready IMM: Ready LAB: Ready ME: Ready IMR Status: Partially Medically Ready VII. SERVICE MEDICAL DEPLOYABILITY EVALUATION INDICATED Based on your review of all documentation, is the hospitality team member medically deployable without limitations? Reference Nguyễn 6490.07 Yes (hospitality team member DOES NOT currently have a medical condition that limits deployability) Date PHA Completed: END OF [id number] REPORT Impression:Meets?medical standards per DAFMAN 48-123/MSD. Disposition:?No AF469 changes based on this encounter.World-Wide Qualified. 01/11/2025 [id number] AMDS Functional Status Combined list of recent functional and cognitive assessments recorded at Department of Defense and Veterans Affairs (VA).VA Functional [place] Measurement (FIM) Scale: 1 = Total Assistance (Subject = 0% +), 2 = Maximal Assistance (Subject = 25% +), 3 = Moderate Assistance (Subject = 50% +), 4 = Minimal Assistance (Subject = 75% +), 5 = Supervision, 6 = Modified [place] (Device), 7 = Complete [place] (Timely, Safely). Assessment Date/Time Source Assessment Type Assessment Skill Assessment Score Assessment Details No data available for this section
[2025-01-11 13:56] LABS: Alanine Aminotransferase 22 U/L (0-40); Albumin Level 3.9 g/dL (3.5-5.0); Alkaline Phosphatase 61 U/L (39-117); Aspartate Amino Transferase 32 U/L (5-37); Bilirubin Direct < 0.2 mg/dL (0.0-0.5); Bilirubin Total 0.2 mg/dL (0.0-1.0); Total Protein 7.3 g/dL (6.5-8.0)
== END 2025-01-11 09:46 | disposition home or self-care (01) ==
LOC: HO.HMGCLDS 09:45
PROVIDERS: PCP Nurse Practitioner Family; Visit Provider Nurse Practitioner Family
DX: R74.01 Elevation of levels of liver transaminase levels (principal)
CPT/HCPCS: 36415; 80076

== ENCOUNTER 2025-09-27 11:45 | Outpatient (AMB) | payer OTHER, SELFPAY ==
--- NOTE | 2025-09-27 11:46 | MHC.PC.OV ---
Vital Signs 09/27/25 11:55 Height 6 ft 2 in Weight 273 lb BMI 35.0 BP 134/63 Blood Pressure Location Rt brachial Position Sitting Respiration 16 Pulse 71 Pulse Source Pulse Oximeter Temp 98.8 F Temp Source Oral Pulse Oximetry (%) 98 Oxygen Delivery Method Room Air Intake Visit Reasons: Shoulder pain Intake Note: patient here c/o left shoulder pain patient needs referral orthopedics. he was in the ER 2 days ago History Faculty Member Required: No Allergies No Known Allergies Allergy (Verified 09/27/25 12:10) Medication List - Last Reconciled 09/27/25 by Shu Lora CNP No Known Home Meds Tobacco use date assessed: 09/27/25 Dental Screening Dental Screen Date: 09/27/25 Did you have a dental visit in the last 12 months?: Yes Did you have a dental problem in the last 6 months where you did not have access to dental care?: No Was dental information given to patient?: Patient has dentist HPI HPI Comments History of Present Illness Details 35-year-old male presents for ED discharge follow-up. He was evaluated at [facility] ED on 09/25/2025 for MRI request for atraumatic left shoulder pain, related to lifting heavy weights. MRI revealed the following: No evidence of rotator cuff tear. Mild subchondral marrow edema like signal at the acromioclavicular joint with no significant bony hypertrophy, which may reflect mild degenerative or stress change. He was advised to use sling, rest, elevate the extremity, and follow-up with ortho as needed. He notes that he lifts heavy weighs at the gym. He started experiencing left should pain while doing physical training 2-3 weeks ago for the . He is in the [employer]. He feels sharp pain with rotation of the shoulder. He denies tingling, numbness, or loss of sensation. He states that wearing sling and taking tylenol helps significantly. 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 1. Little interest or pleasure in doing things: not at all 2. Feeling down, depressed, or hopeless: not at all 3. Trouble falling or staying asleep, or sleeping too much: not at all 4. Feeling tired or having little energy: not at all 5. Poor appetite or overeating: not at all 6. Feeling bad about yourself - or that you are a failure or have let yourself or your family down: not at all 7. Trouble concentrating on things, such as reading the newspaper or watching television: not at all 8. Moving or speaking so slowly that other people could have noticed. Or the opposite - being so fidgety or restless that you have been moving around a lot more than usual: not at all 9. Thoughts that you would be better off or of hurting yourself in some way: not at all Total score: 0 Source: Developed by Drs. Malcom [place], Aurora Wilson, Loc Whitfield and colleagues, with an educational alfredo from [email or web address]. Thrive Questionnaire Date Thrive assessed: 01/10/25 I am a: Patient What is your living situation today?: I have a steady place to live Within the past 12 months, did the food you bought not last and you didn't have the money to get more?: Never true Within the past 12 months, did you worry whether your food would run out before you got money to buy more?: Never true Do you have trouble paying for medicines?: No Do you have trouble getting transportation to medical appointments?: No Do you have trouble paying your heating and electricity bill?: No Do you have trouble taking care of your child, family member or friend?: No Do you have trouble with day-to-day activities such as bathing, preparing meals, shopping, managing finances, etc.?: No Are you currently unemployed and looking for a job?: No Are you interested in more education?: Yes Please select the resources that you would like help with: None Currently or been in a relationship where the following occur: No concerns reported THRIVE Score: 0 MARQUIS-7 AMB Questionnaire MARQUIS-7 Date MARQUIS - 7 assessed: 11/07/24 Source: Developed by Drs. Malcom Benton, Aurora Wilson, Loc Whitfield and colleagues, with an educational alfredo from [email or web address]. Review of Systems Const Details: Const Denies chills, Denies fatigue, Denies fever(s), Denies headache(s) and Denies weakness ENT Denies dizziness and Denies headache(s) Card Denies chest pain, Denies lightheadedness, Denies dyspnea and Denies other (Palpitations) Resp Denies cough, Denies dyspnea, Denies wheezing and Denies other ( shortness of breath) GI Denies abdominal pain, Denies melena, Denies hematochezia, Denies change in bowel habits, Denies dyspepsia and Denies nausea Denies hematuria and Denies dysuria Musc Reports as per HPI Skin/Breast Denies rash, Denies unusual bruising and Denies wounds Neuro Denies abnormal gait, Denies dizziness, Denies headache(s), Denies memory loss, Denies numbness, Denies Sensory deficit (Neuro), Denies tingling and Denies weakness Psych Denies anxiety, Denies depression, Denies memory loss Endo Denies cold intolerance, Denies fatigue, Denies heat intolerance, Denies polydipsia and Denies polyuria Aller/Immun Denies wheezing Physical exam (Primary Care) Vital Signs: Last Vital Signs Temp 98.8 F 09/27/25 11:55 Pulse 71 09/27/25 11:55 Resp 16 09/27/25 11:55 BP 134/63 09/27/25 11:55 Pulse Ox 98 09/27/25 11:55 Oxygen Delivery Method Room Air 09/27/25 11:55 BMI result Body Mass Index 35.0 Tobacco/Smoking Status: Tobacco use Status Tobacco use date assessed 09/27/25 09/27/25 11:57 Patient Tobacco Use Status Never used Tobacco 09/27/25 11:48 e-Cigarette/Vaping Use Former Use (he quit 6 months 09/27/25 11:48 ago) PHQ-9: PHQ-9 Score PHQ-9: Total score 0 09/27/25 11:48 Thrive Assessment: Date of Thrive Assessment Date Thrive assessed 01/10/25 09/27/25 11:48 Currently or been in a relationship where the following occur: No concerns reported Const Other: General: no acute distress and well developed Nutritional Appearance: well nourished Orientation/consciousness: patient oriented x3 [facility] Head: Yes normocephalic and Yes atraumatic Eyes General: appearance normal, both eyes and all related structures Pupils: Equal, round and reactive pupils present EOM: EOMs intact bilaterally Resp Effort & Inspection: normal respiratory effort Auscultation: clear to auscultation bilaterally Cardio Rate: regular rate Rhythm: regular rhythm Heart sounds: S1 normal heart sound present, S2 normal heart sound present, no gallops, no murmurs and no rubs GI Palpation (GI): No Abdominal aortic bruit present, Soft to palpation, nontender, No hepatosplenomegaly present and No Rebound tenderness present Auscultation: normal bowel sounds General: Yes no CVA tenderness Back/Spine/Pelvis Back: no CVA tenderness Cervical Spine: cervical ROM normal and No Cervical spine tenderness Thoracic/Lumbar Spine: thoraco-lumbar ROM normal, No pain with thoraco-lumbar ROM, No thoracic spinal tenderness and No lumbar spinal tenderness Extrem General: Yes normal to inspection, No edema and No calf tenderness. Tenderness with rotation and upper movement of the left shoulder Skin General: warm and dry. Normal skin color. Normal skin turgor Neuro General: patient oriented x3, gait normal and no focal neuro deficit Cranial nerves: Yes Equal, round and reactive pupils present Cognition (Neuro): normal cognition Gait exam (Neuro): Normal gait present Sensory Exam: No Sensory deficit (Neuro) Psych Appearance: grossly normal Affect: normal affect Attitude: cooperative Thought process: Normal thought process present Coding Level of Care Code Est Pt Level 4 (83680) Diagnoses Left shoulder pain M25.512 Assessment & Plan Assessment & Plan (1) Left shoulder pain: Code(s): M25.512 - Pain in left shoulder Category: Medical Plan: Tenderness with rotation and upper movement of the left shoulder. Naproxen 500 mg twice daily as needed ordered; advised to take as prescribed with food. Rest, ice, elevate, and sling encouraged. Advised to avoid sports or exercise until healed. Work restriction completed for his employer. Schedule a transfer of care visit with a new provider within the practice. Return sooner with symptoms or concerns. Verbalized understanding and agreed with the plan. Medications: New naproxen Take with food 500 mg PO BID PRN 60 tabs 1RF pain
[2025-09-27 11:55] VITALS: BP 134/63; PULSE 71; RESP 16; TEMP 37.1; O2SAT 98; BMI 35.0
== END 2025-09-27 12:26 | disposition home or self-care (01) ==
PROVIDERS: PCP Nurse Practitioner Family; Visit Provider Nurse Practitioner Family
DX: M25.512 Pain in left shoulder (principal)

== ENCOUNTER → 2025-09-27 11:45 | Outpatient (BNVA) | payer OTHER, SELFPAY | PROVIDERS: PCP Nurse Practitioner Family; Visit Provider Nurse Practitioner Family | DX: M25.512 Pain in left shoulder (principal) | CPT/HCPCS: 99212 ==